=== PATIENT | male | born 1975 | race Caucasian/White ===

== ENCOUNTER 2017-08-03 10:34 | Emergency (ER) | payer OTHER ==
[~2017-08-03] VITALS: Ht 180.3 cm; Wt 90.3 kg
[~2017-08-03 10:34] MED LIST: CLON1 PO
[2017-08-03] MEDS ORDERED: FLUV50 PO (10:57)
[2017-08-03] MEDS ORDERED: MIRT30 PO (10:58)
[2017-08-03] MEDS ORDERED: OLAN5 PO (10:58)
[2017-08-03] MEDS ORDERED: CLON1 PO (10:58)
[2017-08-03] MEDS ORDERED: ZYRTEC10 M1 PO (10:59)
[2017-08-03] MEDS ORDERED: RISP2 PO (10:59)
[2017-08-03] MEDS ORDERED: Zithromax250 MG PO (11:47)
== END 2017-08-03 11:56 | disposition home or self-care (01) ==
LOC: ER 10:34
DX: R05 Cough (principal); Z91.030 Bee allergy status; Z88.2 Allergy status to sulfonamides; Z79.899 Other long term (current) drug therapy; Z87.891 Personal history of nicotine dependence
CPT/HCPCS: 71046; 99283

== ENCOUNTER 2019-01-18 19:31 | Emergency (ER) | payer OTHER ==
[~2019-01-18] VITALS: Ht 182.9 cm; Wt 72.6 kg
[~2019-01-18 19:31] MED LIST changes: +Benztropine Mesy1 MG; +FLUV50 PO; +MIRT30 PO; +OLAN5 PO; +RISP2 PO; +ZYRTEC10 M1 PO; +Zithromax250 MG PO
[2019-01-18 20:14] LABS: BASOPHILS PERCENT AUTO 0 % (0-2); EOSINOPHILS PERCENT AUTO 0 % (0-6); Hematocrit 38.6 % (37.0-53.0); Hemoglobin 12.9 g/dL (13.5-17.5); IMMATURE GRAN ABSOLUTE AUTO 0.01 K/mm3 (0.00-0.10); IMMATURE GRAN PERCENT AUTO 0 % (0-1); LYMPHOCYTES PERCENT AUTO 13 % (21-46); MONOCYTES PERCENT AUTO 9 % (4-13); Mean Corpuscular HGB 30.7 pg (26.0-34.0); Mean Corpuscular HGB Conc 33.4 g/dL (31.5-36.5); Mean Corpuscular Volume 92 fL (80-100); Mean Platelet Volume 9.8 fL (9.1-12.4); NEUTROPHILS ABSOLUTE AUTO 6.38 K/mm3 (1.96-9.15); NEUTROPHILS PERCENT AUTO 78 % (41-73); Platelet Count 212 K/mm3 (150-400); RDW Coefficient Variation 12.8 % (11.7-14.2); RDW Standard Deviation 42.5 fL (35.1-46.3); White Blood Cell Count 8.19 K/mm3 (4.00-11.30)
[2019-01-18 20:42] LABS: Alanine Aminotransfer (ALT/SGP 41 U/L (12-78); Albumin, Blood 3.6 g/dL (3.4-5.0); Albumin/Globulin Ratio 1.3 (0.8-1.8); Alk Phos 82 U/L (50-136); Anion Gap 2 mmol/L (6-16); Aspartate Aminotrans (AST/SGOT 68 U/L (12-37); Bilirubin, Total 0.6 mg/dL (0.1-1.0); Blood Urea Nitrogen 18 mg/dL (8-24); CO2, Blood 31 mmol/L (21-32); Chloride, Blood 107 mmol/L (98-108); Creatinine, Blood 0.82 mg/dL (0.60-1.20); Globulin, Blood 2.7 g/dL (2.2-4.0); Glomerular Filtration Rate >60 (60-); Glucose, Blood 122 mg/dL (70-99); Potassium, Blood 4.6 mmol/L (3.5-5.5); Sodium, Blood 140 mmol/L (136-145); Total Protein, Blood 6.3 g/dL (6.4-8.2)
[2019-01-18] MEDS ORDERED: ACET325 PO (20:44)
[2019-01-18] MEDS ORDERED: AMOX250 PO (20:45)
[2019-01-18] MEDS ORDERED: DOC250 PO (20:46)
[2019-01-18] MEDS ORDERED: Econazole Nitra15 GM TOP (20:46)
[2019-01-18] MEDS ORDERED: POLY500 PO (20:47)
[2019-01-18] MEDS ORDERED: Flonase 0.05% N16 GM (20:48)
[2019-01-18] MEDS ORDERED: Loratadine10 MG PO (20:48)
[2019-01-18] MEDS ORDERED: MIRALAX17 GM PO (20:50)
[2019-01-18] MEDS ORDERED: LAMO100 PO (20:50)
[2019-01-18] MEDS ORDERED: QUET25 PO (20:51)
[2019-01-18] MEDS ORDERED: QUET200 PO (20:52)
== END 2019-01-18 22:59 | disposition home or self-care (01) ==
LOC: ER 19:31
PROVIDERS: Emergency Medicine
DX: T43.591A Poisoning by other antipsychotics and neuroleptics, accidental (unintentional), initial encounter (principal); S06.9X1A Unspecified intracranial injury with loss of consciousness of 30 minutes or less, initial encounter; W18.30XA Fall on same level, unspecified, initial encounter; Z91.013 Allergy to seafood; Z88.2 Allergy status to sulfonamides; Z88.1 Allergy status to other antibiotic agents; Z79.899 Other long term (current) drug therapy; F31.9 Bipolar disorder, unspecified; Z87.891 Personal history of nicotine dependence
CPT/HCPCS: 70450; 72125; 80053; 85025; 93005; 93010; 99284-25

== ENCOUNTER 2019-01-27 13:50 | Emergency (ER) | payer OTHER ==
[~2019-01-27] VITALS: Ht 182.9 cm; Wt 81.7 kg
[~2019-01-27 13:50] MED LIST changes: +ACET325 PO; +AMOX250 PO; +DOC250 PO; +Econazole Nitra15 GM TOP; +Flonase 0.05% N16 GM; +LAMO100 PO; +Loratadine10 MG PO; +MIRALAX17 GM PO; +POLY500 PO; +QUET200 PO; +QUET25 PO
[2019-01-27 14:40] LABS: BASOPHILS PERCENT AUTO 0 % (0-2); EOSINOPHILS PERCENT AUTO 0 % (0-6); Hematocrit 38.9 % (37.0-53.0); Hemoglobin 13.1 g/dL (13.5-17.5); IMMATURE GRAN ABSOLUTE AUTO 0.01 K/mm3 (0.00-0.10); IMMATURE GRAN PERCENT AUTO 0 % (0-1); LYMPHOCYTES ABSOLUTE AUTO 1.23 K/mm3 (0.84-5.20); LYMPHOCYTES PERCENT AUTO 27 % (21-46); MONOCYTES ABSOLUTE AUTO 0.67 K/mm3 (0.16-1.47); MONOCYTES PERCENT AUTO 15 % (4-13); Mean Corpuscular HGB 30.3 pg (26.0-34.0); Mean Corpuscular HGB Conc 33.7 g/dL (31.5-36.5); Mean Corpuscular Volume 90 fL (80-100); Mean Platelet Volume 8.7 fL (9.1-12.4); NEUTROPHILS ABSOLUTE AUTO 2.61 K/mm3 (1.96-9.15); NEUTROPHILS PERCENT AUTO 58 % (41-73); Platelet Count 287 K/mm3 (150-400); RDW Coefficient Variation 12.8 % (11.7-14.2); RDW Standard Deviation 42.2 fL (35.1-46.3); Red Blood Cell Count 4.33 M/mm3 (4.30-5.90); White Blood Cell Count 4.52 K/mm3 (4.00-11.30)
[2019-01-27 15:18] LABS: Alanine Aminotransfer (ALT/SGP 52 U/L (12-78); Albumin, Blood 3.9 g/dL (3.4-5.0); Albumin/Globulin Ratio 1.4 (0.8-1.8); Alk Phos 106 U/L (50-136); Anion Gap 5 mmol/L (6-16); Aspartate Aminotrans (AST/SGOT 41 U/L (12-37); Bilirubin, Total 0.5 mg/dL (0.1-1.0); Blood Urea Nitrogen 17 mg/dL (8-24); Bun/Creatinine Ratio 18.4 (12.0-20.0); CO2, Blood 29 mmol/L (21-32); Calcium, Blood 9.3 mg/dL (8.5-10.1); Chloride, Blood 109 mmol/L (98-108); Creatinine, Blood 0.92 mg/dL (0.60-1.20); Globulin, Blood 2.8 g/dL (2.2-4.0); Glomerular Filtration Rate >60 (60-); Glucose, Blood 104 mg/dL (70-99); Potassium, Blood 4.3 mmol/L (3.5-5.5); Sodium, Blood 143 mmol/L (136-145); Total Protein, Blood 6.7 g/dL (6.4-8.2)
== END 2019-01-27 16:29 | disposition home or self-care (01) ==
LOC: ER 13:50
PROVIDERS: Emergency Medicine
DX: T18.128A Food in esophagus causing other injury, initial encounter (principal); G31.84 Mild cognitive impairment of uncertain or unknown etiology; F31.9 Bipolar disorder, unspecified; Z87.891 Personal history of nicotine dependence; Z88.2 Allergy status to sulfonamides; Z88.8 Allergy status to other drugs, medicaments and biological substances; Z88.1 Allergy status to other antibiotic agents; Z91.030 Bee allergy status; Z79.899 Other long term (current) drug therapy
CPT/HCPCS: 36415; 71045; 80053; 85025; 99284-25

== ENCOUNTER 2019-03-04 20:08 | Emergency (ER) | payer OTHER ==
[~2019-03-04] VITALS: Ht 190.5 cm; Wt 70.6 kg
[2019-03-04] MEDS ORDERED: ONDA4ODT MM (20:35)
[2019-03-04] MEDS ORDERED: CLON1 PO (21:04)
[2019-03-04] MEDS ORDERED: BENADRYL25 MG PO (21:05)
[2019-03-04] MEDS ORDERED: LAMO100 PO (21:06)
[2019-03-04] MEDS ORDERED: Loratadine10 MG PO (21:07)
[2019-03-04] MEDS ORDERED: MIRALAX17 GM PO (21:07)
[2019-03-04] MEDS ORDERED: PALI3TAB PO (21:08)
[2019-03-04] MEDS ORDERED: PALI6TA PO (21:09)
[2019-03-04] MEDS ORDERED: TRAZ150T57 PO (21:10)
== END 2019-03-04 21:45 | disposition home or self-care (01) ==
LOC: ER 20:08
DX: R11.2 Nausea with vomiting, unspecified (principal); R51 Headache; H57.89 Other specified disorders of eye and adnexa; H51.0 Palsy (spasm) of conjugate gaze; F31.9 Bipolar disorder, unspecified; Z87.891 Personal history of nicotine dependence; Z91.030 Bee allergy status; Z88.2 Allergy status to sulfonamides; Z88.1 Allergy status to other antibiotic agents; Z79.899 Other long term (current) drug therapy
CPT/HCPCS: 96361; 96374; 96375; 99283-25; J1200; J1885; J2765; J7030

== ENCOUNTER 2019-06-21 12:20 | Observation (INO) | payer OTHER ==
[~2019-06-21] VITALS: Ht 180.3 cm; Wt 70.3 kg
[~2019-06-21 12:20] MED LIST changes: -ACET325 PO; -AMOX250 PO; -DOC250 PO; -Econazole Nitra15 GM TOP; -Flonase 0.05% N16 GM; +ONDA4ODT MM; +PALI3TAB PO; +PALI6TA PO; +TRAZ150T57 PO
[2019-06-21] MEDS ORDERED: CLON1 PO (13:36)
[2019-06-21] MEDS ORDERED: ACET325 PO (13:37)
[2019-06-21] MEDS ORDERED: AMOX250 PO (13:38)
[2019-06-21] MEDS ORDERED: DOC250 PO (13:38)
[2019-06-21] MEDS ORDERED: ECONAZOLE NITRA30 GM TOP (13:39)
[2019-06-21] MEDS ORDERED: DIPH50 PO (13:41)
[2019-06-21] MEDS ORDERED: Lamictal150 MG PO (13:41)
[2019-06-21] MEDS ORDERED: Loratadine10 MG PO (13:42)
[2019-06-21] MEDS ORDERED: MIRALAX17 GM PO (13:42)
[2019-06-21] MEDS ORDERED: Flonase 0.05% N16 GM (13:43)
[2019-06-21] MEDS ORDERED: OLANZAPINE15 MG PO (13:44)
[2019-06-21] MEDS ORDERED: Halcion0.25 MG PO (13:45)
[2019-06-21] MEDS ORDERED: Retin-A15 G1 TOP (13:46)
[2019-06-21] MEDS ORDERED: SENNA-S LAXATI1 EACH PO (13:46)
[2019-06-21] MEDS ORDERED: Triple Antibio1 EACH TOP (13:47)
[2019-06-21] MEDS ORDERED: Fibercon625 MG PO (13:47)
[2019-06-21] MEDS ORDERED: MEDICATI TOP (13:48)
[2019-06-21] MEDS ORDERED: EPIPEN0.3 MG/0.3 IM (13:50)
--- NOTE | 2019-06-21 19:20 | NUR ---
PT ARRIVED TO THE MEDICAL FLOOR FROM THE ER AROUND 183, PT IS ANXIOUS BUT COOPERATIVE AT THAT TIME, PTS CARE GIVERS ARE AT THE BEDSIDE, THE PT WAS GIVEN HALDOL 5 MG FOR INCREASED ANXIETY AND AGITATION, BED ALARM ON, CALL LIGHT IN REACH, REPORT GIVEN TO NOC NURSE
[2019-06-21 21:11] LABS: Source, Urine Clean Catch
[2019-06-21 21:14] LABS: Bilirubin, Urine Neg (Neg); Blood, Urine Neg (Neg); Glucose Qualitative, Urine Neg (Neg); Ketones, Urine Neg (Neg); Leukocyte Esterase, Urine Neg (Neg); Nitrite, Urine Neg (Neg); Protein, Urine Neg (Neg); Specific Gravity, Urine 1.015 (1.003-1.022); Urobilinogen, Urine NORM (Normal)
[2019-06-21 21:19] LABS: Appearance, Urine Hazy (Clear); Color, Urine Yellow (P-Yellow)
[2019-06-21 21:21] LABS: Amorphous Heavy (0-Heavy); Bacteria Few /hpf; Red Blood Cells, Urine 0-2 /hpf (0-2); Squamous Epithelial Cells Rare /hpf (Few); White Blood Cells, Urine Not Seen /hpf (0-5)
--- NOTE | 2019-06-22 04:39 | NUR ---
SHIFT SUMMARY: A/O TO SELF AND STAFF FROM [facility]. UP WALKING AROUND, DRESSING SELF AND ATTEMPTING TO LEAVE AT START OF SHIFT. YELLING OUT ANGRILY SAYING NAMES AND THREATENING INDIVIDUALS NOT PRESENT. AMB TO COMMODE AND SEVERAL TIMES BEFORE SUCCESSFULLY HAVING A CONTINENT VOID AND BM. KICKING IN THE DIRECTION OF STAFF BUT DID NOT MAKE CONTACT. REDIRECTED W/COLORING AND SNACKS. TOOK HS MEDICATIONS READILY ALONG W/ SNACK. FELL ASLEEP AB0UT 45 MINUTES AFTER ROUTINE MEDS WERE GIVEN. PT HAS REMAINED ASLEEP EXCEPT TO GET UP TO VOID IN TOILET AND RETURNS TO BED EACH TIME. BED ALARM ON. 1 ASSIST W/ T/F. WILL CONT TO MONITOR.
[2019-06-22 05:35] LABS: BASOPHILS ABSOLUTE AUTO 0.06 K/mm3 (0.00-0.23); BASOPHILS PERCENT AUTO 1 % (0-2); EOSINOPHILS ABSOLUTE AUTO 0.54 K/mm3 (0.00-0.68); EOSINOPHILS PERCENT AUTO 11 % (0-6); Hematocrit 41.6 % (37.0-53.0); Hemoglobin 13.5 g/dL (13.5-17.5); IMMATURE GRAN ABSOLUTE AUTO 0.01 K/mm3 (0.00-0.10); IMMATURE GRAN PERCENT AUTO 0 % (0-1); LYMPHOCYTES ABSOLUTE AUTO 1.35 K/mm3 (0.84-5.20); LYMPHOCYTES PERCENT AUTO 27 % (21-46); MONOCYTES ABSOLUTE AUTO 0.55 K/mm3 (0.16-1.47); MONOCYTES PERCENT AUTO 11 % (4-13); Mean Corpuscular HGB 30.2 pg (26.0-34.0); Mean Corpuscular HGB Conc 32.5 g/dL (31.5-36.5); Mean Corpuscular Volume 93 fL (80-100); Mean Platelet Volume 8.4 fL (9.1-12.4); NEUTROPHILS ABSOLUTE AUTO 2.54 K/mm3 (1.96-9.15); NEUTROPHILS PERCENT AUTO 50 % (41-73); Platelet Count 354 K/mm3 (150-400); RDW Coefficient Variation 12.3 % (11.7-14.2); RDW Standard Deviation 42.5 fL (35.1-46.3); Red Blood Cell Count 4.47 M/mm3 (4.30-5.90); White Blood Cell Count 5.05 K/mm3 (4.00-11.30)
[2019-06-22 06:05] LABS: Alanine Aminotransfer (ALT/SGP 39 U/L (12-78); Albumin, Blood 3.5 g/dL (3.4-5.0); Albumin/Globulin Ratio 1.3 (0.8-1.8); Alk Phos 150 U/L (50-136); Anion Gap 5 mmol/L (6-16); Aspartate Aminotrans (AST/SGOT 37 U/L (12-37); Bilirubin, Total 0.5 mg/dL (0.1-1.0); Blood Urea Nitrogen 14 mg/dL (8-24); Bun/Creatinine Ratio 14.3 (12.0-20.0); CO2, Blood 30 mmol/L (21-32); Calcium, Blood 9.1 mg/dL (8.5-10.1); Chloride, Blood 107 mmol/L (98-108); Creatinine, Blood 0.98 mg/dL (0.60-1.20); Globulin, Blood 2.7 g/dL (2.2-4.0); Glomerular Filtration Rate >60 (60-); Glucose, Blood 88 mg/dL (70-99); Potassium, Blood 4.5 mmol/L (3.5-5.5); Sodium, Blood 142 mmol/L (136-145); Total Protein, Blood 6.2 g/dL (6.4-8.2)
--- NOTE | 2019-06-22 13:26 | NUR ---
PT AGITATION THIS AFTER NOON THE PT HAS BECOME RESTLESS AND AGITATED AT TIMES, HALDOL 5 MG GIVEN, THE PT SO CHARLY HAS BEEN EASILY REDIRECTED
--- NOTE | 2019-06-22 17:09 | NUR ---
PT IS ALERT, HAS SEVERE AUTISM, THE PT IS UP WITH MINIMAL STANDBY ASSISTANCE TO THE BATHROOM AND OUT INTO THE SABA, THE PT AT TIMES HAS BEEN ANXIOUS AND A LITTLE AGITATED AT ONE TIME THIS AFTERNOON, PRN HALDOL WAS GIVEN AT THAT TIME X1, THE PT HAS BEEN EASILY REDIRECTIBLE FOR THE MOST PART, PT APPEARS TO BE BREATHING EASILY ON RA, THE PTS FORMER CARE GIVERS ARE THIS AFTERNOON TO VISIT THE PT, WILL CONTINUE TO MONITOR AND ASSESS FOR CHANGES
--- NOTE | 2019-06-23 04:12 | NUR ---
PT FORCEFULLY EXITED LOCKED UNIT BY KICKING AND HOLDING DOORS LONGER THAN 15 SECONDS. PT WALKED AROUND MEDICAL FLOOR AND ATTEMPTED TO ENTER OTHER PT'S ROOMS. SIDDHARTHA ALFARO CALLED. PT REDIRECTED BACK TO ROOM, IM HALDOL ADMINISTERED PER EMAR. PT IS CURRENTLY LAYING IN BED, SOMEWHAT RESTLESSLY, BUT NO LONGER ATTEMPTING TO LEAVE ROOM AT THIS TIME.
--- NOTE | 2019-06-23 04:26 | NUR ---
SHIFT SUMMARY: BP 83/64, 100/57. SKIN WARM AND CLAMMY. PT AFEB. CALM MOSTLY EXCEPT FOR PREVIOUSLY DOCUMENT INCIDENT REQUIRING HALDOL. PT HAS SLEPT FOR MUCH OF THE NIGHT EXCEPT TO GET UP AND ATTEMPT TO VOID. CURRENTLY SLEEPING. BED LOW, ALARM ON, WILL CONT TO MONITOR.
--- NOTE | 2019-06-23 06:26 | NUR ---
PT GET OOB AND COMING OUT IN THE HALLWAY, INCREASINGLY AGITATED, BUT STILL REDIRECTABLE. HE IS NOT ATTEMPTING TO LEAVE THE UNIT AND DOES STILL RETURN TO ROOM. BUT IS UP AND DOWN MORE FREQUENTLY. SPOKE W/ ANSWERING SERVICE, DR. SHAVER TO PROACTIVELY OBTAIN ADDITIONAL PRN MED TO REDUCE AGITATION. N.O. FOR ATIVAN PO PRN.
--- NOTE | 2019-06-23 15:08 | NUR ---
AT 1:45 PM THE PATIENT GOT OUT OF BED AND WALKED DOWN THE SABA TO THE FRONT DOORS. STAFF GOT INFRONT OF THE PATIENT TO TRY TO STEER HIM AWAY FROM THE DOORS AND BACK TO HIS ROOM. THE PATIENT WAS AGITATED AND CONFUSED, PUSHING STAFF OUT OF HIS WAY TO LEAVE. STAFF WAS ABLE TO REDIRECT HIM BACK TO HIS ROOM. AT THIS TIME, HIS NURSE GATHERED THE MEDICATIONS DR. GARZON ORDERED THIS AFTERNOON TO ADMINISTER TO THE PATIENT. FOLLOWING THE ADMINISTRATION OF THESE MEDICATIONS, THE PATIENT CONTINUES TO GET OUT OF BED AND LEAVE HIS ROOM BUT HE IS NOT SHOWING SIGNS OF AGRESSION. PATIENT IS EASILY REDIRECTABLE. WILL CONTINUE TO MONITOR.
--- NOTE | 2019-06-23 17:15 | NUR ---
PATIENT IS ALERT. HE IS EASILY REDIRECTABLE MOST OF THE TIME. PATIENT DID BECOME AGRESSIVE AND TRY TO LEAVE THE UNIT TWICE THIS AFTERNOON. DR. GARZON SAW THE PATIENT THIS MORNING AND ORDERED NEW MEDICATIONS WHICH WERE GIVEN PER EMAR TO TREAT THE PATIENT'S AGITATION. THE PATIENT SPENT HIS DAY SLEEPING IN BED. HE GETS UP OUT OF BED TO USE THE BATHROOM. ATTENDS IN PLACE. WILL CONTINUE TO MONITOR
--- NOTE | 2019-06-23 19:14 | NUR ---
VERIFIED VIDEO MONITORING CALLED [facility] MONITOR AND VERIFIED VIDEO MONITORING FOR THIS PT
--- NOTE | 2019-06-24 04:13 | NUR ---
SHIFT SUMMARY ADMITTED FOR PSYCH EVAL. FULL CODE. WAS LIVING AT [facility] - FOLLOWING MEDICATION CHANGES HE BECAME AGGRESSIVE THERE, ENDANGERING HIMSELF WELL. WE ARE SEEKING PLACEMENT ELSEWHERE FOR THIS PT. CLCM IS PURSUING PLACEMENT, IF UNSUCCESSFUL SACU CAN THEN CONSIDER PLACING HIM. REGULAR DIET, VIDEO MONITORING IN PLACE, RA, SUPERVISE FEEDING (ONLY SMALL AMOUNTS AT A TIME), NO IV ACCESS. HE IS REDIRECTABLE AND COOPERATIVE WITH CARE. HX: AUTISM, SCHIZOAFFECTIVE DISORDER, OCD, DYSPHAGIA. I DID MEDICATE WITH PRN ORAL SEROQUEL Q 4 HRS AND THIS SEEMED EFFECTIVE WHEN HE SHOWED SIGNS OF ANXIETY. HE DOES FREQUENTLY SNACK. HE ENJOYS WARM BLANKETS.
--- NOTE | 2019-06-24 06:03 | NUR ---
PT NOT SLEEPING AT NIGHT INFORMED BY PREVIOUS NIGHT NURSE THAT THIS PT DID NOT SLEEP THE NIGHT BEFORE LAST, HE ALSO DID NOT SLEEP LAST NIGHT. HE GETS OUT OF BED EVERY 30 MIN - HOUR AND EXITS HIS ROOM. SO FAR I'VE BEEN ABLE TO REDIRECT HIM BACK TO HIS ROOM.
--- NOTE | 2019-06-24 17:08 | NUR ---
PT HAS BEEN AGITATED DURING THIS SHIFT. HAS BEEN DIRECTABLE THUS FAR. PT AGREEABLE WITH SAFETY REQUESTS. HAS BEEN APPROACHING DOOR AND HITTING THE DOOR WITH MODERATE FORCE AND OPEN HANDS UP TO THIS POINT. SAFETY OF PT HASN'T BEEN COMPROMISED AT THIS POINT. BEHAVIOR HAS BEEN DISCUSSED WITH PROVIDER TLAANG. LEONARD TO CONTINUE TO MONITOR SAFETY OF PT.
--- NOTE | 2019-06-24 18:05 | NUR ---
SHIFT SUMMARY PT ALERT TO SELF AND KNOWN PEOPLE ONLY. INCOMPREHENSABLE TALK FOR MOST PART. PT IMPULSIVE BUT HAS REMAINED REDIRECTABLE, SOME PRN AGITATION MEDS USED THROUGH SHIFT WITH SUCCESS. NO ACUTE MED CHANGES OBSERVED. LN TO CONTINUE TO MONITOR.
--- NOTE | 2019-06-24 19:25 | NUR ---
VERIFIED VIDEO MONITORING CONTACTED VIDEO MONITOR TO VERIFY MONITORING
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
--- NOTE | 2019-06-25 17:58 | NUR ---
PT VERY AGITATED THIS MORNING AT START OF SHIFT. NOC RN GAVE PRN MEDICATIONS, WHICH TOOK SOME TIME TO HAVE AN EFFECT. PT CALMED AND ATE BREAKFAST, PERIODS OF AGITATION AND DISROBING, WANDERING IN SABA AND ATTEMPTING TO ENTER OTHERS ROOMS, BUT HAS BEEN REDIRECTABLE. PT IS GOING TO REQUIRE SUPERVISION IN THE BR HE ATTEMPTED TO FLUSH HIS ATTENDS AND CLOGGED THE TOILET, MAINTENANCE CAME AND UNPLUGGED. NO ACUTE CHANGES, WILL CONTINUE TO MONITOR AND REPORT TO ONCOMING RN
--- NOTE | 2019-06-26 05:25 | NUR ---
SHIFT SUMMARY- PT. AGITATED T/O THE SHIFT W/SEVERAL ATTEMPTS MADE TO GO INTO OTHER PT'S ROOMS. PT. WANDERING THE SABA MOST OF THE NIGHT, TAKING OFF HIS CLOTHES MULTIPLE TIMES, REMOVING LINEN FROM BED, AND SLAMMING BOTH ROOM/BATHROOM DOORS. PT. REDIRECTED BACK INTO HIS ROOM MANY TIMES DURING THE NIGHT, REPOSITIONED FOR COMFORT, AND SNACKS GIVEN PER PT. REQUEST. PRN HALDOL AND ATIVAN GIVEN PER EMAR, WITH MINIMAL EFFECT. PT. CONTS TO BE MONITORED BY CAMERA. CALL LIGHT WITHIN REACH, SIDE RAILS UP X3, AND BED IN LOW POSITION. WILL CONT TO MONITOR.
--- NOTE | 2019-06-26 16:55 | NUR ---
SHIFT SUMMARY PT BECAME INCREASINGLY AGITATED THE SHIFT WENT ON. EARLY AFTERNOON PT WAS MEDICATED WITH PER EMAR WITH HALDOL, ALTIVAN, AND BENADRYL. PT CURRENTLY SLEEPING IN BED. CALL LIGHT IN REACH. MONITORS IN PLACE. NO OTHER CHANGES IN ASSESSMENT AT THIS TIME. VSS. WILL CONTINUE TO MONITOR UNTIL TURNOVER IS COMPLETE. PT AWAITING PLACEMENT. DC PLANNING CONSULTED.
--- NOTE | 2019-06-26 20:03 | NUR ---
PATIENT FREQUENTLY WALKS SABA
--- NOTE | 2019-06-26 22:23 | NUR ---
PT. ASLEEP IN BED, NO APPARENT DISTRESS NOTED. CALL LIGHT WITHIN REACH, SIDE RAILS UP X3, AND CAMERA ON IN ROOM. WILL CONT TO MONITOR.
--- NOTE | 2019-06-27 03:59 | NUR ---
PT HAS SPENT NIGHT MAKING AND UNMAKING BED, WELL REQUESTING MANY BLANKETS
--- NOTE | 2019-06-27 04:44 | NUR ---
SHIFT SUMMARY- PT. SLEPT ON/OFF DURING THE NIGHT. NO APPARENT DISTRESS NOTED. PT. WAS UP OOB FEW TIMES DURING THE SHIFT, EASILY REDIRECTED. PT. CALM AND COOPERATIVE WITH CARE. TOOK SCHEDULED MEDS W/O DIFFICULTY. NO OTHER ACUTE CHANGES TO CONDITION. CALL LIGHT WITHIN REACH AND SIDE RAILS UP X3. WILL CONT TO MONITOR.
--- NOTE | 2019-06-27 06:37 | NUR ---
Room 348 Has given verbal permission for student nurse Cristhian Cardona to provide care later on in the day on 06/27/2019 from 13:00-17:50
--- NOTE | 2019-06-27 17:54 | NUR ---
SUMMARY PT SITTING UP IN HIS ROOM EATING DINNER, PT HAS BEEN IMPULSIVE YET REDIRECTIBLE T/O THE DAY, OFTEN UP IN THE HALLS AND WANDERING INTO ROOMS, PT COOPERATIVE WITH CARE, TAKES ALL MEDS WITHOUT DIFFICULTY, CERTIFIED ORTHOTIST PRACTICE MANAGER IN TO VISIT BRIEFLY, VSS, NO ACUTE CHANGES, WILL CONT TO MONITOR
--- NOTE | 2019-06-28 05:59 | NUR ---
SHIFT SUMMARY- PT. WAS IMPULSIVE DURING MOST OF THE NIGHT, WANDERING THE SABA AND ATTEMPTING TO GO INTO PT'S ROOMS. BECAME VERY AGITATED AND BEGAN TO THROW DESK ITEMS ON THE FLOOR. MEDICATED WITH A B52 PER EMAR WITH GOOD EFFECT. PT. WAS ABLE TO REST COMFORTABLY THE REST OF THE SHIFT. NO APPARENT DISTRESS NOTED. CALL LIGHT WITHIN REACH AND SIDE RAILS UP X3. WILL CONT TO MONITOR.
--- NOTE | 2019-06-28 17:39 | NUR ---
SUMMARY PT RESTLESS THIS AFTERNOON, PT WANDERING THE HALLS OFF AND ON T/O THE DAY, INTO OTHER PATIENTS ROOMS, EASILY REDIRECTABLE, EATS ANYTHING YOU PUT IN FRONT OF HIM, A COTTON GROWER DID COME IN TO VISIT, PT REQUIRED MEDICATION FOR AGITATION ONCE TODAY, VSS, NO ACUTE CHANGES, WILL CONT TO MONITOR
--- NOTE | 2019-06-29 06:31 | NUR ---
SHIFT SUMMARY PATIENT WAS UP AND DOWN ALL NIGHT, WANDERING AROUND THE UNIT, GOT VERY LITTLE SLEEP. GIVEN A PRN SHOWER WHEN HE TOOK HIS CLOTHES OFF AND SMEARED BM ON HIS HANDS AND BACK. BED IN LOWEST POSITION WITH WHEELS LOCKED. CALL LIGHT WITHIN REACH. REPORT GIVEN TO ONCOMING RN.
--- NOTE | 2019-06-29 18:51 | NUR ---
alert, orintated to self, willful, angry when twarted, one dose ativan, no call light, rm air, no IV, redirectable but sometimes requires a presence to get his attention, shared bsr with noc shift
--- NOTE | 2019-06-30 02:41 | NUR ---
PATIENT HAS BECOME AGGITATED, WILL NOT STAY IN ONE SPOT. WANDERING AROUND THE UNIT, DISROBING, ATTEMPTING TO GO INTO OTHER PATIENT'S ROOMS, AND ATTEMPTING TO PLAY WITH THINGS THAT HE SHOULDN'T BE TOUCHING. THIS NURSE GAVE THE PATIENT AN IM INJECTION OF ATIVAN PER EMAR TO HELP HIM SETTLE DOWN.
--- NOTE | 2019-06-30 04:53 | NUR ---
PATIENT RAN HIMSELF INTO THE DOORS OF THE UNIT ATTEMPTING TO GET OUT. HE WAS BECOMING INCREASINGLY DIFFICULT TO REDIRECT AND AGGITATED. PATIENT GIVEN HALDOL PER EMAR
--- NOTE | 2019-06-30 06:42 | NUR ---
SHIFT SUMMARY PATIENT AGGITATED MUCH OF THE NIGHT. RECEIVED MEDICATIONS PER EMAR. PATIENT IS STILL AGGITATED BUT IS SLIGHTLY MORE REDIRECTABLE. PATIENT DID NOT SLEEP OVERNIGHT. BED IN LOWEST POSITION WITH WHEELS LOCKED. CALL LIGHT WITHIN REACH. REPORT GIVEN TO JENN WARD.
--- NOTE | 2019-06-30 14:37 | NUR ---
full dose of haldol, ativan and benadryl haldol not given with benadryl
--- NOTE | 2019-06-30 15:28 | NUR ---
more agitated dispite following 's wishes as to 3 med mix
--- NOTE | 2019-06-30 18:52 | NUR ---
alert, mobile, redirectable, cooperative with medication, having trouble staying in room so spent the last three hours alternating between a chair in the leiva and his room, likes food, shared bsr with pt and noc staff
--- NOTE | 2019-07-01 04:13 | NUR ---
SHIFT SUMMARY PT HAS HAD NO ACUTE CHANGES THIS SHIFT, MEDICATED PER MAR FOR AGITATION, REDIRECTABLE MOST OF SHIFT, PT WAKES CONTINUALLY T/O NIGHT AND ATTEMPTS TO WALK OUT TO SABA, RETURNS TO BED WHEN ASKED TO; COOPERATIVE W/MEDS & CARE, SLEEPING AT THIS TIME, CALL LIGHT IN REACH, WILL CONT TO MONITOR UNTIL REPORT GIVEN TO DAY RN.
--- NOTE | 2019-07-01 17:50 | NUR ---
SHIFT SUMMARY INDEPENDENT IN HALLWAYS. SITS IN CHAIR IN HALLWAY AND THEN ASKS TO GO TO BED AND TAKES HIMSELF BACK. REQUESTING A SHAVE AND A SHOWER THIS MORNING BEFORE BREAKFAST. GENERALLY REDIRECTABLE. NEEDS COACHING WITH EATING BECAUSE HE LIKES TO EAT AND DRINK FAST. WEARING HIS CLOTHES WITH NO COMPLAINT TODAY. WAS CHANTING JOHN VERY LOUDLY THIS AFTERNOON AND WAS GETTING UP FROM BED AND PACING HALLWAYS. BENEDRYL/HALDOL/ATIVAN COMBINATION GIVEN. HAS REMAINED AWAKE MOST OF THE AFTERNOON BUT IS CALMER THAN EARLIER.
--- NOTE | 2019-07-02 05:15 | NUR ---
SHIFT SUMMARY PT HAS HAD NO ACUTE CHANGES THIS SHIFT, W/REDIRECTING HAS REMAINED IN BED AND SLEPT ON & OFF T/O SHIFT, PT BEDRESTING AT THIS TIME, WILL CONT TO MONITOR UNTIL REPORT GIVEN TO DAY RN.
--- NOTE | 2019-07-02 17:48 | NUR ---
SHIFT SUMMARY UP AND DOWN FROM BED. SITTING IN CHAIR IN HALLWAY. REDIRECTABLE WITH BEHAVIORS. MONITERED WITH HIS ORAL INTAKE DUE TO EATING TOO FAST. WAS CHANTING THIS AFTERNOON BUT STOPPED AFTERNOON PROGRESSED. LAUGHING AND MOVING ABOUT IN HALLWAY PRIOR TO DINNER. VISITOR FOR BREAKFAST AND DINNER.
--- NOTE | 2019-07-03 04:08 | NUR ---
SHIFT SUMMARY PT HAS HAD NO ACUTE CHANGES THIS SHIFT, HAD A DIFFICULT TIME SLEEPING TONIGHT; AT SHIFT START PT WAS ASKING TO GO HOME AND ASKING FOR JAMIA, ALSO TALKING ABOUT HIS BROTHER- WERO PAGE, PT HAS BEEN VERY PLEASANT, COOPERATIVE W/CARE AND EASILY REDIRECTABLE. PT FINALLY FELL ASLEEP @ 0315 AND IS SLEEPING AT THIS TIME, WILL CONT TO MONITOR UNTIL REPORT GIVEN TO DAY RN.
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
--- NOTE | 2019-07-03 12:38 | NUR ---
PT HAS BEEN UP AND DOWN FREQUENTLY T/O THE DAY BUT REMAINS EASILY (VERBALLY) REDIRECTABLE. PT IS ALERT TO SELF AND AMBULATES INDEPENDENTLY IN THE HALLS. PT COMES OUT INTO THE SABA AND SITS IN A CHAIR WITH ANOTHER PT AND VISITS. STAFF MONITOR CLOSELY AND IF THE PT IS BECOMING OVERSTIMULATED STAFF CAN VERBALLY REDIRECT HIM TO HIS ROOM TO LAY DOWN.
--- NOTE | 2019-07-03 15:00 | NUR ---
PT BECAME AGGITATED AND THREW A CUP OF WATER AT THE WALL AND BEGAN USING HARSH LANGUAGE. PT WAS ABLE TO REDIRECT VERBALLY AT THIS TIME REVIEW OF THE EMAR REVEALS IM MEDICATIONS THAT HAVE BEEN GIVEN REGULARLY UNTIL YESTERDAY, WILL CTM PT AT THIS TIME, HE REDIRECTS FOR THIS RN WELL AT THIS TIME.
--- NOTE | 2019-07-03 16:00 | NUR ---
PT HAVING SMALL OUTBURSTS BUT STILL VERBALLY REDIRECTABLE, HELPED THE PT INTO BED, REDUCED STIMULUS (LIGHTS OUT DOOR CLOSED) THIS LASTED FOR A LITTLE WHILE HOWEVER PT SEEMS TO BE HAVING DIFFICULTY FINDING A RESTFUL STATE. PT STILL REDIRECTS VERBALLY FOR THIS RN BUT NOT FOR OTHER STAFF.
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
--- NOTE | 2019-07-03 19:39 | NUR ---
SHIFT SUMMARY- AFTER IMMEDICATION WAS GIVEN PT WAS DIRECTED TO LAY IN BED, MINUTES LATER THE PT WAS SEEM RUNNING COMPLETELY NAKED THROUGH THE HALLS. PT AGAIN REDIRECTED BACK TO HIS ROOM AND BACK INTO HIS CLOTHES AND INTO BED. PT CONTINUED TO GET UP AND NEEDED FREQUENT REDIRECTING UNTIL RN SAT IN THE ROOM WITH THE LIGHTS OFF AND REMINDED THE PT TO LAY DOWN AND RELAX. AFTER 40-50 MINUTES THE PT RELAXED AND LAY IN BED QUIETLY. PT WAS UP WALKING IN THE HALLS AT SHIFT CHANGE.
--- NOTE | 2019-07-04 04:30 | NUR ---
SUMMARY PT HAD NO ISSUES EARLY IN SHIFT. PT CONTINUED TO COME OUT OF ROOM BUT WAS REDIRECTABLE. PT DID SLEEP SOME. PT BEGAN WALKING THE SABA AND TRYING TO GO INTO OTHER PT'S ROOMS. PT WAS NOT REDIRECTABLE. PT WAS MEDICATED PER EMAR AND IS CURRENTLY SLEEPING. WCTM. CALL LIGHT IN REACH.
--- NOTE | 2019-07-04 17:40 | NUR ---
PT HAS BEEN UP ON AND OFF. AOX1 PT IS VERY IMPULSIVE AND CAN BE REDIRECTED, BUT WILL TRY TO JUST KEEP GOING SOMETIMES. PT TREATED FOR HIS EXTREME ANXIETY PER EMAR. PT TAKES CLOTHES ON AND OFF AND WILL STRIP SHEETS OFF HIS BED. HAD A COUPLE EPISODES OF HIM GETTING VERBALLY WORKED UP, BUT MANAGED TO SETTLE HIM DOWN. AID TOOK HIM FOR A WALK. PT DOES TRY TO WALK INTO OTHER ROOMS. WILL CONTINUE TO MONITOR.
--- NOTE | 2019-07-05 00:33 | NUR ---
*FALL* PT HAD UNWITNESSED FALL. PT WAS FOUND ON FLOOR IN FRONT OF ROOM 353. PT ASSESSED AND FOUND TO HAVE NO INJURIES. PT MOVED BACK TO HIS ROOM. THIS RN HAS BEEN SITTING IN FRONT OF PT'S ROOM MONITORING HIM. PT ALSO ON CAMERA. PT GIVEN IM BENEDRYL, ATIVAN AND HALDOL. YELLOW GOWN PLACED ON PT. WAX ENGRAVER AND PROVIDER SARAH NOTIFIED OF INCIDENT. PT HAS BEEN INDEPENDANT AND NOW BED ALARM IS ARMED. WCTM.
--- NOTE | 2019-07-05 03:37 | NUR ---
SUMMARY PT HAD A UNWITNESSED GLF. NO INJURIES NOTED. PT HAS BEEN MEDICATED PER EMAR WITH SOME REDUCTION IN AGITATION. PT IS REDIRECTABLE BUT INSISTS ON GETTING OUT OF BED AND GO INTO HALLWAY. PT HAS SLEPT SOME DURING SHIFT. WCTM AND MEDICATE NEEDED. CALL LIGHT IN REACH, CAMERA MONITOR WATCHING AND BED ALARM ON.
--- NOTE | 2019-07-05 06:40 | NUR ---
PT GUARDIAN BRYCE WAS CALLED AND INFORMED OF PT'S FALL. GUARDIAN WAS INFORMED OF NO INJURIES NOTED.
--- NOTE | 2019-07-05 13:41 | NUR ---
AGITATION: PATIENT BECOMING INCREASINGLY AGITATED IN ACTIONS AND WORDS. FOR EXAMPLE, PATIENT YELLING "I WANT TO GO OUT THERE" WHEN REDIRECTED BACK TO HIS ROOM AND ATTEMPTING TO PULL THE HAND PUMP ERECTOR YOUNG OFF THE WALL. USED A QUIET AND CALM VOICE TO GET PATIENT BACK TO HIS BED AND WENT TO GET PATIENT'S PRN MEDICATIONS FOR AGITATION. UPON RETURNING, PATIENT SITTING AT SIDE OF THE BED BOUNCING UP AND DOWN. GAVE PATIENT A PEPSI AND CHOCOLATE PUDDING AND MEDICATED FOR AGITATION. PATIENT NOW RESTING ON HIS BED WITH THE SHEET OVER HIS HEAD.
--- NOTE | 2019-07-05 18:35 | NUR ---
END OF SHIFT SUMMARY: PATIENT APPEARED COMFORTABLE THROUGHOUT SHIFT. PATIENT EASILY REDIRECTABLE. PATIENT AMBULATED WITH GERIATRIC ASSISTANT MULTIPLE TIMES IN HALLWAY. PATIENT STEADY ON FEET WITH IRREGULAR GAIT. PATIENT ABLE TO FOLLOW MOST COMMANDS. SPEECH IS GARBLED AT TIMES AND HAS SHORT (2-3 WORD SENTENCES) RESPONSES. PATIENT HAS AN EXCELLENT APPETITE. PATIENT REQUIRES CUES TO EAT AND DRINK SLOWLY. PATIENT EXPERIENCED SOME INCREASED AGITATION THIS AFTERNOON (SEE NURSES NOTE). PATIENT CAREGIVER ASKED IF THE PATIENT WAS RECEIVING HIS ACNE CREAM. IT HAS NOT BEEN ORDERED. SHE REPORTED THAT SHE WILL BRING IT IN TOMORROW IF AN ORDER IS ABLE TO BE OBTAINED.
--- NOTE | 2019-07-06 05:06 | NUR ---
COUNSELOR AID SUMMARY NO ACUTE CHANGES THIS SHIFT. PT HAS BEEN FAIRLY CALM AND EASILY REDIRECTABLE TONIGHT. HAS NOT BEEN IRRITABLE OR AGGRESSIVE. BED ALARM ON FOR SAFETY. PT DOES GET UP OFTEN BUT WILL GO RIGHT BACK TO BED OR WILL USE THE RESTROOM. BEDTIME DOSE OF ATIVAN WAS INCREASED TO 6 MG STARTING TONIGHT. VSS, WILL CONTINUE TO MONITOR.
--- NOTE | 2019-07-06 17:20 | NUR ---
SHIFT SUMMARY- PT IS ALERT, PLESANT AND COOPERATIVE. HE IS EATING AND DRINKING WELL. PT IS IMPULSIVE AND FREQUENTLY GETS OUT OF BED OR OUT OF HIS CHAIR. HE IS INTERMITNETLY UNSTEADY ON HIS FEET. HIS CARE PROVIDER WAS IN THIS MORNING AND ASSISTED WITH BREAKFAST. HE HAD A SHOWER THIS AFTERNOON.
--- NOTE | 2019-07-07 04:33 | NUR ---
RESEARCH CONSULTANT SUMMARY NO ACUTE CHANGES. PT HAS REMAINED CALM AND EASILY REDIRECTABLE TONIGHT. UP AND DOWN FROM BED TO CHAIR NUMEROUS TIMES AT START OF SHIFT BUT PT ABLE TO SLEEP FOR SEVERAL HOURS AT A TIME AFTER RECIEVING SCHEDULED BEDTIME MEDS. BED ALARM ON FOR SAFETY. VSS, WILL CONTINUE TO MONITOR.
--- NOTE | 2019-07-07 18:27 | NUR ---
SHIFT SUMMARY- PT IS ALERT, PLESANT AND COOPERATIVE. HE IS IMPULSIVE AND HAS BEEN GETTING OUT OF BED FREQENTLY THIS SHIFT. HE BECAME RESTLESS THIS AFTERNOON. HE IS EATING AND DRINKING WELL. HOME CARE PROVIDER CALLED FOR AN UPDATE.
--- NOTE | 2019-07-08 04:27 | NUR ---
SHIFT SUMMARY PT ANXIOUS AT BEGINNING OF SHIFT. OFTEN GETTING UP FROM HIS CHAIR TO GO BACK TO HIS BED, BACK AND FORTH. COOPERATIVE AND REDIRECTABLE. TOOK EVENING MEDICATIONS WITHOUGHT COMPLAINT AND THEN AFTER APPROX 2 HOURS SLOWELY SETTLED DOWN TO BED. NO ACUTE EVENTS NOTED THUS FAR THIS NIGHT. PT IS PRESENTLY SLEEPING. APPEARS IN NO ACUTE DISTRES. WILL CONTINUE TO MONITOR.
--- NOTE | 2019-07-08 17:46 | NUR ---
SHIFT SUMMARY PT SLEPT MOST THE MORNING. THIS AFTERNOON & EVENING, PT AMBULATED BACK & FORTH FROM CHAIR IN HALLWAY TO BED THROUGHOUT SHIFT. PT AMBULATED IN THE HALLWAYS WITH AIDE THIS SHIFT. PT SHOWERED TODAY. NO PRN MEDICATIONS NEEDED THIS SHIFT. PT IN PLEASANT & COOPERATIVE MOOD THROUGHOUT SHIFT. NO OTHER CHANGES IN ASSESSMENT AT THIS TIME.
--- NOTE | 2019-07-09 04:15 | NUR ---
SHIFT SUMMARY PT WAS REPEATEDLY SWITCHING BACK AND FORTH FROM CHAIR IN HALLWAY TO SITTING ON BED AT BEGINING OF SHIFT. AFTER EVENING MEDS SLOWELY OVER THE COARSE OF AN HOUR OR TWO BECAME MORE TIRED AND WENT TO SLEEP. HE HAS AWOKEN SEVERAL TIMES THIS NIGHT AND COME OUT INTO THE HALLWAY. EASILY REDIRECTABLE, AND READILY CLIMBS BACK INTO BED WHEN EXPLAINED TO HIM THAT IT IS THE MIDDLE OF THE NIGHT. NO ACUTE CHANGES NOTED THUS FAR THIS SHIFT. WILL CONTINUE TO MONITOR.
--- NOTE | 2019-07-09 17:23 | NUR ---
SHIFT SUMMARY PT HAS HAD A GOOD DAY. AMBULATED HALLWAY WITH AIDE 2 TIMES. REORIENTED WELL WITH FOOD AND REDIRECTION. PT SHOWERED THIS SHIFT. NO OTHER CHANGES IN ASSESSMENT AT THIS TIME. NO PRN MEDS REQUIRED THIS SHIFT SO FAR. PLACEMENT PENDING PER DC PLANNING. VSS.
--- NOTE | 2019-07-10 05:52 | NUR ---
SHIFT SUMMARY PT IS COOPERATIVE WITH CARE. BECOMES ANXIOUS WITH LOUD NOISES AND OTHER PATIENTS YELLING. WAS ANXIOUS EARLY THIS SHIFT BUT CALMED THE EVENING PROGRESSED. WENT TO BED AROUND 2300 AND HAS SLEPT OFF AND ON THROUGH THE NIGHT. AWAKENS OFTEN AND WALKS OUT INTO HALLWAY. EASILY REDIRECTABLE BACK TO BED. PRESENLTY APPEARS TO BE SLEEPING AND IN NO DISTRESS. WILL CONTINUE TO MONITOR.
--- NOTE | 2019-07-10 18:13 | NUR ---
SHIFT SUMMARY PT AMBULATED HALLWAY AND CHANGED FROM BED TO CHAIR IN HALLWAY THROUGHOUT SHIFT. NO EXCESSIVE AGITATION. PT REDIRECTED EASILY. PT SHOWERED TODAY. CONTINUED TO BE REMINDED TO EAT SLOWER. NO OTHER CHANGES IN ASSESSMENT AT THIS TIME. VSS. WILL CONTINUE TO MONITOR UNTIL TURNOVER IS COMPLETE.
--- NOTE | 2019-07-11 04:27 | NUR ---
SHIFT SUMMARY PT VERY BUSY ALL THE TIME. ALWAYS MOVING. WANDERED IN ROOM AND OUT IN SABA. COLORING SUPPLIES PROVIDED WHICH PT SPENT SOME TIME WORKING ON. PT INCONTINENT AT TIMES. NEEDS ASSISTANCE WITH CLEANING AFTER USING THE RESTROOM. PT FELL ASLEEP AT APPROX 0100 AND HAS SPLEPT WELL SINCE. WHITE NOISE MACHINE ON AT BEDSIDE. PT MOSTLY NONVERBAL. WILL ANSWER SOME SIMPLE QUESTIONS BUT USUALLY WILL NOT. VITAL SIGNS STABLE. PT AWAITING PLACEMENT. WILL CONTINUE TO MONITOR.
--- NOTE | 2019-07-11 18:40 | NUR ---
SHIFT SUMMARY PT INDEPENDENT IN ROOM AND IN HALLWAY. NO ATTEMPTS TO PUSH DOORS OPEN OR SHEYLA HIMSELF AGAINST COONEY OR DOORS. DID GET CAUGHT REMOVING FOOD FROM MEAL CART THAT HAD BEEN IN PT ROOMS. MOVED CART TO CLOSER OBSERVATION AND THEN EXPLAINED TO PT NOT TO REMOVED FOOD FROM CART WELL EXTRA FOOD ORDERED FOR HIM. SHAVED THIS AFTERNOON WITH PT APPEARING INCREASED IN AXIETY WITH THE NOISE OF SHAVER AND THEN REPORTED FEELING SCARED FOR APPROX 1/2 HOUR AFTERWARD. PROVIDED CALMING WORDS AND REMINDED HIM HE IS IN A SAFE PLACE.
--- NOTE | 2019-07-12 05:16 | NUR ---
SHIFT SUMMARY: PATIENT IS ALERT AND ORIENTED TO SELF, FIRST NAME ONLY. MOST WORDS INSURANCE COMMISSIONER CAN NOT UNDERSTAND. VS ARE STABLE, APPETITE IS GOOD. PATIENT GOES BACK AND FORTH FROM CHAIR IN ROOM TO CHAIR IN THE SABA WITH A STEADY GAIT. NO S/S OR COMPLIANTS OF PAIN. HS ATIVAN AND THORAZINE WERE GIVEN PER JUN WITH GOOD EFFECT, PATIENT HAS SLEPT WELL THIS SHIFT.
--- NOTE | 2019-07-12 13:30 | NUR ---
07-11-19 FOOD REQUEST X3 WAS ENTERED WITH THE WRONG PROVIDER. THE CORRECT PROVIDER IS MILIND MEDELLIN MD ER.
--- NOTE | 2019-07-12 17:28 | NUR ---
PATIENT IS ALERT AND ORIENTED TO HIMSELF AND FOLLOWING DIRECTIONS. HE HAS NO AGRESSIVE BEHAVIOR TODAY. HE AMBULATES INDEPENDENTLY. HE DOES NEED HELP CHAMGING ATTENDS. SUPERVISED MEALS. NO NEW COMPLAINTS. WILL CONTINUE TO MONITOR
--- NOTE | 2019-07-12 21:53 | NUR ---
PATIENT ALERT TO SELF AND FOLLOWING DIRECTIONS. GOING BACK AND FORTH INDEPENDENTLY FROM BED TO CHAIR AND IN HALLWAY. REPORTING HE WANTS TO GO TO BED AFTER MEDICATION. GARBLED SPEECH. PATIENT IN BED AT THIS TIME.
--- NOTE | 2019-07-13 03:37 | NUR ---
SHIFT SUMMARY PATIENT HAD NO ACUTE CHANGES OBSERVED. AXO TO SELF AND FOLLOWS DIRECTION. HX OF AUTISM/BIPOLAR. GARBLED SPEECH. INDEPENDENT IN ROOM AND HALLWAY. NO IV ACCESS. NO AGRESSIVE BEHAVIOR NOTED. VSS/AFEBRILE. NO S/SX OF PAIN, SOB, AND N/V. TAKES MEDICATION WHOLE WITH WATER. SAT IN SABA CHAIR OR BACK INTO BED REPEATING ACTION FIRST PART OF SHIFT. ABLE TO SLEEP MOST OF THE NIGHT. CALL LIGHT IN REACH. BED IN LOWEST POSITION. WILL CONTINUE TO MONITOR UNTIL DAY SHIFT NURSE ASSUMES CARE.
--- NOTE | 2019-07-13 18:35 | NUR ---
PATIENT IS ALERT. ORIENTED TO SELF AND FOLLOWING DIRECTIONS. HE IS COOPERATIVE. HE GOT A SHOWER TODAY. HE HAS A GOOD APPETITE. NO COMPLAINTS. WILL CONTINUE TO MONITOR
--- NOTE | 2019-07-13 22:59 | NUR ---
PATIENT SLEEPING AFTER MEDICATION ADMINISTRATION. CALL LIGHT IN REACH.
--- NOTE | 2019-07-14 03:24 | NUR ---
SHIFT SUMMARY PATIENT HAD NO ACUTE CHANGES OBSERVED. AXO TO SELF WITH HX OF AUTISM. GARBLED SPEECH. PATIENT INDEPENDENT IN ROOM AND OUT IN HALLWAY. NO AGRESSIVE BEHAVIOR OBSERVED. NO IV ACCESS. VSS/AFEBRILE. NO S/SX OF PAIN, SOB, AND N/V. TAKES MEDICATION WHOLE WITH WATER. UP TO CHAIR AND BACK TO BED REPEATING FIRST PART OF SHIFT. PATIENT GOES TO BED AFTER MEDICATION ADMINISTRATION. CALL LIGHT IN REACH. BED IN LOWEST POSITION. WILL CONTINUE TO MONITOR UNTIL DAY SHIFT NURSE ASSUMES CARE.
--- NOTE | 2019-07-14 17:13 | NUR ---
PATIENT IS ALERT AND ORIENTED TO SELF AND FOLLOWING DIRECTIONS. HE HAS BEE COOPERATIVE AND EASILY REDIRECTABLE ALL DAY. HE IS INDEPENDENT TO THE BATHROOM BUT NEEDS ASSISTANCE WITH CHANGING SOILED ATTENDS. NO COMPLAINTS OF PAIN. HE HAS SLEPT MOST OF THE DAY BETWEEN MEALS. WILL CONTINUE TO MONITOR.
--- NOTE | 2019-07-15 05:31 | NUR ---
SHIFT SUMMARY PT IS A 44 Y/O MALE, FROM [facility], AND ADMITTED FOR A PSYCHIATRIC OBSERVATION HOLD AFTER DISPLAYING INCREASED AGGRESSION AT [facility]. PT IS DEVELOPMENTALLY DELAYED, BUT CURRENTLY COOPERATIVE WITH CARE AND EASILY REDIRECTABLE. NO COMPLAINTS OF PAIN, NAUSEA OR SOB. PT SLEPT WELL THROUGH THE NIGHT. VITAL SIGNS STABLE. PT WANDERS INDEPENDENT BETWEEN HALLWAY AND ROOM. NO OTHER ACUTE CHANGES IN PT CONDITION NOTED. WILL CONTINUE TO MONITOR AND TREAT PER EMAR UNTIL HAND OFF TO DAY SHIFT RN.
--- NOTE | 2019-07-15 15:54 | NUR ---
SHIFT SUMMARY PT IS FATIGUED TODAY BUT AWAKES TO HIS NAME. HE HAS BEEN UP TO THE BATHROOM AND TO EAT BUT THEN ASKS TO GO BACK TO BED. HE DID C/O A HEADACHE AND TYLENOL WAS GIVEN ORDERED. PT ALSO REPORTS "NOT FEELING WELL" AND HIS BP IS ON THE LOW SIDE. IS AWARE. PT IS ABLE TO MAKE HIS NEEDS KNOWN WHEN ASKED. HE IS RESTING IN BED AND COMES OUT TO THE SABA IF HE NEEDS ANYTHING. HE IS VISIBLE ON CAMERA PER REMOTE MONITORING.
--- NOTE | 2019-07-16 06:09 | NUR ---
SHIFT SUMMARY PT IS A 44 Y/O MALE, ADMITTED FOR INCREASED AGRESSION WITH A HX OF DEVELOPMENTAL DELAY. HE IS A&O X SELF AND STAFF, COOPERATIVE WITH CARE. PT REPORTED A HEADACHE, AND WAS MEDICATED WITH PRN TYLENOL. NO COMPLAINTS OF NAUSEA OR SOB. PT IS INDEPENDENT AND WANDERS BETWEEN HIS ROOM AND THE HALLWAY. VITAL SIGNS STABLE. NO OTHER ACUTE CHANGES IN PT CONDITION NOTED. WILL CONTINUE TO MONITOR AND TREAT PER EMAR UNTIL HAND OFF TO DAY SHIFT RN.
--- NOTE | 2019-07-16 15:55 | NUR ---
SHIFT SUMMARY PT IS A/O X2 WITH NO C/O PAIN. HE HAS BEEN UP FOR MEALS AND THEN BACK TO BED. HE DID GET UP AND WITH X 1 ASSIST TOOK A SHOWER AND WE CHANGED HIS LINENS. PT CONTINUES TO HAVE A GOOD APPETITE AND DRINKS FLUIDS EASILY WHEN OFFERED. BP HAS BEEN ON THE LOW SIDE AGAIN TODAY AND THE DR IS AWARE. FLUIDS HAVE BEEN ENCOURAGED THROUGHOUT THE DAY. PT HAS DIFFICULTY WITH COMMUNICATION AND NEEDS FREQUENT NURSE ROUNDING. HE REMAINS VISIBLE ON CAMERA FOR SAFETY PER REMOTE INSULATION BOARD CALENDER OPERATOR. HE IS RESTING NOW IN BED.
--- NOTE | 2019-07-17 05:08 | NUR ---
SHIFT SUMMARY PT IS A 44 Y/O MALE, ADMITTED FOR PSYCH OBSERVATION HOLD AFTER SHOWING INCREASED AGGRESSION WITH STAFF AND OTHER PATIENTS. PT IS FROM [facility], HX OF DEVELOPMENTAL DELAY. HE WANDERS INDEPENDENTLY BETWEEN HIS ROOM AND THE HALLWAY. NO COMPLAINTS OF PAIN, NAUSEA OR SOB. VITAL SIGNS STABLE. NO ACUTE CHANGES IN PT CONDITION NOTED. WILL CONTINUE TO MONITOR AND TREAT PER EMAR UNTIL HAND OFF TO DAY SHIFT RN.
--- NOTE | 2019-07-17 17:38 | NUR ---
SHIFT SUMMARY PT IS A/O X 1 WITH NO C/O PAIN OR DISCOMFORT. HE NAPS THROUGHOUT THE DAY AND GETS UP TO EAT AND USE THE TOILET. HE WAS ASSISTED TO TAKE A SHOWER. PT CONTINUES TO EAT AND DRINK VERY WELL AND OFTEN. PT IS UP IND IN HIS ROOM AND IN THE SABA. HE FOLLOWS DIRECTIONS AND IS COOPERATIVE WITH HIS CARE. HE CAN MAKE HE NEEDS KNOWN AT TIMES IF ASKED. HE COMES OUT IN THE SABA IF HE NEEDS SOMETHING.
--- NOTE | 2019-07-18 04:40 | NUR ---
SHIFT SUMMARY NO ACUTE CHANGES THIS SHIFT. AOXSELF, UNABLE TO ASSESS FULL ORIENTATION DUE TO GARBLED/MUMMBLING SPEECH. DOES HAVE 1-2 CLEAR WORDS & THEN GOES BACK TO GARBLED SPEECH. DOES FOLLOW SIMPLE DIRECTIONS & IS REDIRECTABLE. PT HAS ONLY SLEPT 1-2 HRS TONIGHT & COMES OUT OF ROOM TO NOTIFY STAFF OF HIS NEEDS FREQUENTLY. NO S/S OF PAIN, NAUSEA OR DYSPNEA. VSS. CALL LIGHT IN REACH. WCTM.
--- NOTE | 2019-07-18 16:48 | NUR ---
NO ACUTE CHANGES TO PATIENT. WALKED AROUND SABA, ATE SNACKS, SLEPT.
--- NOTE | 2019-07-19 04:17 | NUR ---
SHIFT SUMMARY NO ACUTE CHANGES THIS SHIFT. PT ACTUALLY SLEPT WELL TONIGHT, MORE THEN PREVIOUS NIGHT. HE DID GET UP A FEW TIMES & ASKED FOR SNACKS BUT WAS EASILY REDIRECTABLE TO RETURN BACK TO BED WHEN THROUGH. PLEASENT & COOPERATIVE W/CARE. VSS. NO S/S OF PAIN, NAUSEA OR DYSPNEA. CALL LIGHT IN REACH. WCTM.
--- NOTE | 2019-07-19 17:41 | NUR ---
NO ACUTE CHANGES THIS SHIFT. PATIENT AWAITING PLACEMENT.
--- NOTE | 2019-07-20 04:27 | NUR ---
SHIFT SUMMARY NO ACUTE CHANGES THIS SHIFT. PT AWAKE FOR MUCH OF THE NIGHT TONIGHT. WANDERS HALLS. CONSTANTLY BUSY. GOING FROM HIS ROOM TO A CHAIR OUT IN THE SABA. PT ALERT TO SELF ONLY. NONVERBAL AT TIMES. WILL ANSWER SIMPLE QUESTIONS AND MAKE SIMPLE REQUESTS. DRINKS QUICKLY WHEN PROVIDED W/ DRINKS. ASKS FOR DRINKS FREQUENTLY. AGITATED AT TIMES BUT NO AGGRESSIVE BEHAVIOR. DID NOT REQUIRE ANY PRN MEDICATION. VITAL SIGNS STABLE. PT HAD UNEVENTFUL NIGHT. WILL CONTINUE TO MONITOR.
--- NOTE | 2019-07-20 16:50 | NUR ---
PATIENT SLEPT MOST OF THIS SHIFT. APPARENTLY DID NOT SLEP ON NOC SHIFT LAST NIGHT. THORAZINE INCREASED TO HELP WITH SLEEP AT NIGHT. PATIENT WAS CALM AND COOPERATIVE WITH CARE. CONTINENT OF URINE AND STOOL. ABLE TO FEED SELF. AWAITING PLACEMENT.
--- NOTE | 2019-07-21 04:28 | NUR ---
SHIFT SUMMARY PT SLEPT BETTER THIS EVENING. WAKING AND COMING OUT IN SABA AT TIMES BUT EASILY REDIRECTED BACK TO BED AND WOULD FALL BACK ASLEEP. PT AMBULATES IN THE SABA AND ROOM INDEPENDENTLY. FREQUENTLY BUSY. COLORS WITH CRAYON AND PAPER OCCASSIONALLY. HAD A LARGE BM THIS EVENING. NO OUTBURSTS. PT COOPERATIVE WITH CARE. NO PRN MEDICATIONS NEEDED. PT HAD UNEVENTFUL NIGHT. AWAITING PLACEMENT. NO ACUTE CHANGES.
--- NOTE | 2019-07-21 17:00 | NUR ---
PATIENT HAD AN UNEVENTFUL SHIFT. SLEPT THE MAJORITY OF THE SHIFT, WAKING TO EAT SNACKS. VITALS STABLE. NO ACUTE CHANGES NOTED OR REPORTED DURING THIS SHIFT. WILL CONTINUE TO MONITOR AND PROVIDE CARE NEEDED.
--- NOTE | 2019-07-22 07:04 | NUR ---
SHIFT SUMMARY PATIENT ALERT AND ORIENTED X 2. PATIENT WAS ABLE TO SLEEP MOST OF THE NIGHT. NO IV PRESENT. BED IN LOWEST POSITION WITH WHEELS LOCKED. CALL LIGHT WITHIN REACH. REPORT GIVEN TO ONCOMING RN.
--- NOTE | 2019-07-22 17:50 | NUR ---
THERE HAVE BEEN NO ACUTE CHANGES TO REPORT ON THIS SHIFT. WILL CONTINUE TO MONITOR AND PROVIDE CARE NEEDED.
--- NOTE | 2019-07-23 06:37 | NUR ---
SHIFT SUMMARY PATIENT ALERT, ORIENTED TO SELF. WAS ABLE TO SLEEP MOST OF THE NIGHT. BED IN LOWEST POSITION WITH WHEELS LOCKED. CALL LIGHT WITHIN REACH. REPORT GIVEN TO ONCOMING RN.
--- NOTE | 2019-07-23 18:33 | NUR ---
END OF SHIFT SUMMARY: PATIENT ALTERNATED BETWEEN BED AND CHAIR IN HALLWAY. PATIENT TOOK MULTIPLE NAPS. PATIENT APPEARED COMFORTABLE WITH THE EXCEPTION OF REPORTING SOME ANAL PAIN AFTER LARGE BOWEL MOVEMENT THIS EVENING. ENSURED THAT AREA WAS THOROUGHLY CLEANED. NO ABNORMALITIES NOTED. PATIENT CALM AND COOPERATIVE THROUGHOUT SHIFT. PATIENT REDIRECTABLE WHEN TRIED TO GO INTO ANOTHER PATIENT'S ROOM.
--- NOTE | 2019-07-24 05:51 | NUR ---
SHIFT SUMMARY PATIENT ALERT AND ORIENTED TO SELF. EASILY REDIRECTABLE TO DO DESIRED TASKS. HE WAS ABLE TO SLEEP MOST OF THE NIGHT BUT GOT UP SEVERAL TIMES TO USE THE BATHROOM AND ASK FOR SNACKS. BED IN LOWEST POSITION WITH WHEELS LOCKED. CALL LIGHT WITHIN REACH. REPORT GIVEN TO MARY WARD.
--- NOTE | 2019-07-24 06:43 | NUR ---
PATIENT HAD A GROUND LEVEL FALL WHEN HE WAS ATTEMPTING TO SIT ON ONE OF THE ROLLING CHAIRS WITH HIS BLANKET AND TIPPED HIMSELF AND THE CHAIR ONTO THE FLOOR. PATIENT CLAIMED THAT HE HIT HIS HEAD AND THAT HE HAD A HEADACHE. THIS NURSE DID NOT FIND ANY OBVIOUS INJURIES ON THE PATIENT AND HIS PUPILS WERE EQUALLY REACTIVE TO LIGHT. GEOPHYSICS PROFESSOR TOOK VITALS. PATIENT MEDICATED WITH TYLENOL FOR PAIN AND ATIVAN FOR AGGITATION PER EMAR. CHARGE NURSE, MALI VAZ, AND EXTERMINATION INSPECTOR PHYSICIAN, DR SHAVER, NOTIFIED.
--- NOTE | 2019-07-24 17:29 | NUR ---
PT IS ALERT, HAS SEVERE AUTISM, THE PT WAS UP FREQAUNTLY TO THE CHAIR OUT INTO THE SABA, PT HAS A LARGE APPETITE, PT APPEARS TO BE BREATHING EASILY ON RA AT THIS TIME, THE PT APPEARS TO HAVE NO PAIN AT THIS TIME, WILL CONTINUE TO MONITOR AND ASSESS FOR CHANGES
--- NOTE | 2019-07-24 21:40 | NUR ---
PT has been alert cooperative with meds whole and has been eating and drinking feeding self. Up in secure unit ambulates with fairly steady gait. Caregiver contact Mila Gonzalez updated via phone. Medicated with tylenol 650 mg po at HS for co headache with helpful effect.
--- NOTE | 2019-07-25 07:09 | NUR ---
PT continued cooperative and nonagressive. Wanders in secure environment occasionally into another PT's room. He redirects easily with cues. Poor safety awareness, needs secure environment due to cognitive deficits and behaviors. Needs cued to pull PJ pants up. no prn behavioral prn needed this shift. Continent of bowel & bladder. Stood at door to secure unit redirects easily. Friendly with another PT on unit. Speech difficult to understand but can communicate.
--- NOTE | 2019-07-25 17:53 | NUR ---
SUMMARY PT RESTING QUIETLY IN BED, HAS BEEN UP AND DOWN IN THE HALLS T/O THE DAY, RESTLESS, BUT FOLLOWS COMMANDS AND PROMPTS, SPEECH IS SOMETIMES DIFFICULT TO UNDERSTAND, PT HAS BEEN COOPERATIVE WITH CARE, VSS, NO ACUTE CHANGES, WILL CONT TO MONITOR
--- NOTE | 2019-07-26 04:38 | NUR ---
PT much more talkative tonight cooperative with meds whole & no agressive or intrusive behaviors. Occasionally has scrub bottoms down low in public but does pull them up with cues to do so. Wanders on secure unit with steady gait. has poor sleep pattern up multiple times in this night to ask for food and drink. Chews food when cued to take small bites, takes fluid well. offered healthy fluids versus soda. Drinks v8, ensure, milk, snacks, feeding self fruit cocktail, applesauce, yogurt or pudding, crackers cheese sticks. continent of bowel & bladder toilets independently. encouraged clear vocalization. Cheerful mood.
[2019-07-26 09:49] LABS: BASOPHILS ABSOLUTE AUTO 0.02 K/mm3 (0.00-0.23); BASOPHILS PERCENT AUTO 0 % (0-2); EOSINOPHILS ABSOLUTE AUTO 0.39 K/mm3 (0.00-0.68); EOSINOPHILS PERCENT AUTO 8 % (0-6); Hemoglobin 13.3 g/dL (13.5-17.5); IMMATURE GRAN ABSOLUTE AUTO 0.03 K/mm3 (0.00-0.10); IMMATURE GRAN PERCENT AUTO 1 % (0-1); LYMPHOCYTES ABSOLUTE AUTO 1.44 K/mm3 (0.84-5.20); LYMPHOCYTES PERCENT AUTO 30 % (21-46); MONOCYTES ABSOLUTE AUTO 0.56 K/mm3 (0.16-1.47); MONOCYTES PERCENT AUTO 12 % (4-13); Mean Corpuscular HGB Conc 32.4 g/dL (31.5-36.5); Mean Corpuscular Volume 93 fL (80-100); NEUTROPHILS PERCENT AUTO 49 % (41-73); Platelet Count 231 K/mm3 (150-400); RDW Coefficient Variation 12.6 % (11.7-14.2); RDW Standard Deviation 43.4 fL (35.1-46.3); Red Blood Cell Count 4.43 M/mm3 (4.30-5.90); White Blood Cell Count 4.74 K/mm3 (4.00-11.30)
[2019-07-26 10:14] LABS: Anion Gap 4 mmol/L (6-16); Blood Urea Nitrogen 25 mg/dL (8-24); CO2, Blood 29 mmol/L (21-32); Calcium, Blood 8.7 mg/dL (8.5-10.1); Chloride, Blood 109 mmol/L (98-108); Creatinine, Blood 0.96 mg/dL (0.60-1.20); Glomerular Filtration Rate >60 (60-); Glucose, Blood 80 mg/dL (70-99); Potassium, Blood 4.5 mmol/L (3.5-5.5); Sodium, Blood 142 mmol/L (136-145)
--- NOTE | 2019-07-26 17:25 | NUR ---
SUMMARY PT SITTING UP IN A RECLINER IN THE HALLWAY, PT HAS BEEN UP IN HIS ROOM AND UP IN THE HALLS OFF AND ON T/O THE DAY, COOPERATIVE WITH CARE, NO AGGRESION OR OUTBURSTS, EATS PLENTY OF SNACKS, HAD A SHOWER THIS MORNING, NO ACUTE CHANGES, WILL CONT TO MONITOR
--- NOTE | 2019-07-27 03:44 | NUR ---
NARROW GAUGE BRAKEMAN SUMMARY PT HAS BEEN WALKING BACK AND FORTH FROM ROOM TO HALLWAY FREQUENTLY THROUGHOUT THE NIGHT. PT HAS RECIEVED SOME SLEEP BUT STILL LOTS OF PERIODS WHERE HE GETS UP AND WALKS AROUND. PT LIKES SNACKS WHICH HE HAS BEEN PROVIDED PLENTY TONIGHT. PT'S SPEECH IS INCOMPREHENSIBLE. VSS. NO ACUTE CHANGES.
--- NOTE | 2019-07-27 18:02 | NUR ---
NO ACUTE CHANGES NOTED THIS SHIFT, WILL CONTINUE TO MONITOR AND REPORT TO ONCOMING RN
--- NOTE | 2019-07-28 02:27 | NUR ---
07/28/19 0220 PT SLEEPING WELL AT THIS TIME. NO DISTRESS NOTED.
--- NOTE | 2019-07-28 05:13 | NUR ---
07/28/19 0515 PT SLEPT WELL THIS SHIFT WITH OCC. TRIPS IN SABA. RE-DIRECTABLE TO THE BATHROOM TO VOID. DRINKS AND SNACKS GIVEN THROUGHTOUT NIGHT. UNEVENTFUL NIGHT.
--- NOTE | 2019-07-28 18:43 | NUR ---
SHIFT SUMMARY: NO ACUTE CHANGES TO REPORT THIS SHIFT. PT ALERT; HX AUTISM & BIPOLAR; ORIENTED TO SELF; COOPERATIVE WITH CARE; REDIRECTABLE. AWAITING PLACEMENT. WCTM.
--- NOTE | 2019-07-29 03:42 | NUR ---
TOOL ANALYST SUMMARY Patient slept about one half the shift waking about every 30-45 minutes to come out into leiva just to see what is going on. Very easily redirected, then right back to bed and to sleep. No complaints or signs of discomfort overnight.
--- NOTE | 2019-07-29 16:59 | NUR ---
SHIFT SUMMARY PATIENT HAS HAD NO BEHAVIORS. PLEASANT. EASILY REDIRECTABLE. INTERACTING WITH STAFF. CHANGED LOVENOX TO XERALTO. WILL GIVE THIS TONIGHT.
--- NOTE | 2019-07-30 04:17 | NUR ---
INDUSTRIAL ROOF PLUMBER SUMMARY Sleep much improved over last night. Patient would actually get oob, come outside room to sit in his chair, get up on his own and go back to bed. He did not request snacks as much as usual, and was amenable to just what was offered when he was up. No indications of pain or discomfort overnight. voiding in toilet independently about 50% of the time. VSS
--- NOTE | 2019-07-30 16:28 | NUR ---
SHIFT SUMMARY PATIENT DENIES PAIN, NAUSEA, AND SHORTNESS OF BREATH. PATIENT UP INDEPENT WITH SUPERVISION. PATIENT SITTING IN SABA WITH STAFF OR NAPPING IN HIS ROOM THIS SHIFT. PATIENT PLEASANT AND COOPERATIVE WITH CARE. GOOD PO INTAKE. CALL LIGHT IN REACH.
--- NOTE | 2019-07-31 04:52 | NUR ---
TRAVEL WRITER SUMMARY Patient slept almost all night without getting OOB except for 2 trips to chair in hallway. He was again easily redirected to return to bed for a good nights sleep. No visible or verbal signs of discomfort. No change in physical assessment. Woke easily in AM for staff to check pull ups and get vital signs.
--- NOTE | 2019-07-31 16:18 | NUR ---
SHIFT SUMMARY PATIENT IS CURRENTLY ASLEEP IN HIS ROOM. HE HAS HAD A GOOD DAY. CONVERSIVE WITH STAFF TO THE BEST OF HIS ABILITY. ABLE TO MAKE HIS NEEDS KNOWN.
--- NOTE | 2019-07-31 19:15 | NUR ---
ASSUMED CARE RECEIVED REPORT FROM DAY RN, ASSUMED CARE OF PT. ASLEEP AT THIS TIME, NO S/S ACUTE DISTRESS NOTED. DAY RN REPORTS PT HAD BEEN UP AND AMBULATING MOST OF THE DAY. CALL LIGHT, POSSESSIONS IN REACH, BED IN LOWEST POSITION WITH BED ALARM ON. WILL CONTINUE TO MONITOR.
--- NOTE | 2019-08-01 04:17 | NUR ---
SHIFT SUMMARY PT IN BED AT THIS TIME, SLEEPING ON AND OFF. MUMBLING TO SELF AND TALKING TO STAFF ON OCCASION. AMBULATED AROUND UNIT ON AND OFF T/O NIGHT, ATE SNACKS AND CANDY EARLY IN THE SHIFT. NO ACUTE EVENTS NOTED T/O NIGHT. MAINTAINED SAFETY WITH NON-SKID SOCKS AND STAFF SUPERVISION WHEN AMBULATING TO BATHROOM AND ON THE UNIT D/T UNSTEADY GAIT AT TIMES. ABLE TO MAKE NEEDS KNOWN NEEDED, NO BEHAVIORS NOTED, CALM AND COOPERATIVE WITH CARES. RE-DIRECTED NEEDED. CALL LIGHT AND POSSESSIONS IN REACH, BED IN LOWEST POSITION WITH ALARM ON. WILL CONTINUE TO MONITOR UNTIL DAY RN ASSUMES CARE.
--- NOTE | 2019-08-01 17:55 | NUR ---
SHIFT SUMMARY NO CHANGES IN ASSESSMENT AT THIS TIME. PT EASILY REDIRECTABLE. IND IN ROOM. NO PRN MEDS NEEDED THIS SHIFT. PT SHOWERED THIS SHIFT. PT UP ON SIDE OF BED EATING DINNER AT THIS TIME. CALL LIGHT IN REACH. WILL CONTINUE TO MONITOR UNTIL TURNOVER IS COMPLETE.
--- NOTE | 2019-08-02 05:19 | NUR ---
BAIT PAINTER SUMMARY PT SLEPT ON AND OFF THIS SHIFT AND HAS BEEN GOING BACK AND FORTH FROM ROOM TO HALLWAY. IT APPEARED IF PT MIGHT HAVE BEEN SLEEP WALKING. PT'S EYES STILL CLOSED WHEN PT WALKS TO THE HALLWAY. PT HAS BEEN RE-DIRECTED TO ROOM EACH TIME WITH COOPERATION. VSS. NO ACUTE CHANGES.
--- NOTE | 2019-08-02 17:18 | NUR ---
SHIFT SUMMARY PT RECIEVED SHOWER THIS SHIFT. PT HAD 2 INCONT VOIDS WHILE SLEEPING THIS SHIFT. THIS RN SPOKE WITH DR. JONAS AND DR. ABRAHAM ABOUT GAME AUTHOR CONCERNS ABOUT PT WOBBLY AND RECENT DROWSINESS DURING THE DAY. PM ATIVAN CHANGED PER DR. ABRAHAM. NO ACUTE CHANGES IN ASSESSMENT AT THIS TIME. VSS. WILL CONTINUE TO MONITOR UNTIL TURNOVER IS COMPLETE.
--- NOTE | 2019-08-03 04:19 | NUR ---
SHIFT SUMMARY PT HAS HAD NO ACUTE CHANGES THIS SHIFT, HAS BEEN PLEASANT & COOPERATIVE W/CARE, PT HAS AWOKE SEVERAL TIMES T/O NIGHT BUT RETURNS TO BED WHEN REDIRECTED AND RETURNS TO SLEEP. PT IS SLEEPING AT THIS TIME, CALL LIGHT IN REACH, WILL CONT TO MONITOR UNTIL REPORT GIVEN TO DAY RN.
--- NOTE | 2019-08-03 16:30 | NUR ---
Shift Summary No acute events this shift. Patient has been frequently in and out of bed, rested most of the shift in bed as usual. Appetite is great, meals with supervision. No signs of agression or agitation noted this shift, patient has been pleasant. Will continue to monitor.
--- NOTE | 2019-08-04 05:22 | NUR ---
SHIFT SUMMARY PT HAS HAD NO ACUTE CHANGES THIS SHIFT, NO C/O ANY KIND, PT HAS BEEN PLEASANT & COOPERATIVE W/CARE, PT SLEPT WELL T/O NIGHT, PT SLEEPING AT THIS TIME, WILL CONT TO MONITOR UNTIL REPORT GIVEN TO DAY RN.
--- NOTE | 2019-08-04 16:23 | NUR ---
Shift Summary Pleasant and cooperative, easily redirectable. Up and about as usual. No acute concerns or changes.
--- NOTE | 2019-08-04 21:26 | NUR ---
PATIENT UP A FEW TIMES AT SHIFT CHANGE FROM BED TO CHAIR IN HALLWAY INDEPENDENTLY. RESTING IN BED AFTER MEDICATION ADMINISTRATION. NO SIGNS OF AGRESSION, PAIN, OR SOB. WILL CONTINUE TO MONITOR.
--- NOTE | 2019-08-05 03:41 | NUR ---
SHIFT SUMMARY PATIENT HAD NO ACUTE CHANGES OBSERVED. AXO TO SELF. HX AUTISM. TAKES MEDICATION WHOLE WITH WATER. INDEPENDENT IN ROOM AND HALLWAY. NO IV ACCESS. NO SIGNS OF AGRESSION AND AGITATION. PATIENT IN AND OUT OF BED FIRST PART OF SHIFT SITTING IN CHAIR IN HALLWAY. PATIENT REDIRECTED TO BED AFTER 22:00 NIGHTLY. NO S/SX OF PAIN, SOB, AND N/V. CALL LIGHT IN REACH. BED IN LOWEST POSITION. WILL CONTINUE TO MONITOR UNTIL DAY SHIFT NURSE ASSUMES CARE.
--- NOTE | 2019-08-05 15:59 | NUR ---
SHIFT SUMMARY NO ACUTE CHANGES TO PRESENT THIS SHIFT. PT CONTINUES TO WAIT PLACEMENT. INDEPENDENT IN RM AND OUT TO SABA. TAKES LOTS OF NAPS AND WILL GET UP SPONTANEOUSLY AND COME OUT TO SABA TO SIT IN CHAIR FOR A FEW MOMENTS OR WALK UP AND DOWN SABA AND THEN GO BACK TO BED. HAS BEEN CO-OP WITH CARE AND RESPONDING TO DIRECTIONS WELL THIS SHIFT. LIKES TO EAT LOTS OF SNACKS, BETWEEN MEALS WELL EATING ALL OF HIS MEALS. DR OLGUIN HERE TO SEE PT THIS AM; NO NEW ORDERS. CALL LT IN REACH.
--- NOTE | 2019-08-06 04:15 | NUR ---
SHIFT SUMMARY PATIENT HAD NO ACUTE CHANGES OBSERVED. PATIENT INDEPENDENT IN THE ROOM AND WALKS SABA, SITTING IN CHAIR IN HALLWAY AND REPEATS THE PROCESS. PATIENT REDIRECTED TO STAY IN BED AT 22:00. REDIRECTS EASILY. NO SIGNS OF AGRESSION/AGITATION. DENIES PAIN, SOB, AND N/V. VSS/AFEBRILE. NO IV ACCESS. COOPERATIVE WITH CARE. CALL LIGHT IN REACH. BED IN LOWEST POSITION. WILL CONTINUE TO MONITOR UNTIL DAY SHIFT NURSE ASSUMES CARE.
--- NOTE | 2019-08-06 12:32 | NUR ---
NO ACUTE CHANGES TO PRESENT. PT UP WALKING HALLS AND INDEPENDENT IN RM. TAKES NAPS AFTER EACH MEAL. COMES OUT TO CHAIR IN SABA AND WAITS FOR MEALS TO SHOW UP. HAS BEEN CO-OP WITH CARE AND REDIRECTABLE. WILL REPORT OFF TO DOROTHY WARD.
--- NOTE | 2019-08-06 17:47 | NUR ---
NO ACUTE CHANGES TO PT. HE IS EASILY REDIRECTABLE , COMPLAINT WITH CARES AND REQUESTS FROM STAFF.
--- NOTE | 2019-08-07 03:52 | NUR ---
SHIFT SUMMARY PATIENT HAD NO ACUTE CHANGES OBSERVED. INDEPENDENT IN THE ROOM AND HALLWAY STOPPING TO SIT IN HALLWAY CHAIR. AXO X ONE WITH HX AUTISM/BIPOLAR. VSS/AFEBRILE. DENIES PAIN, SOB, AND N/V. NO SNACKS GIVEN AND BACK IN BED 22:00 TO MAINTAIN HIS SLEEP ROUTINE AND IS EFFECTIVE. NO SIGNS OF AGRESSION/AGITATION. CALL LIGHT IN REACH. BED IN LOWEST POSITION. WILL CONTINUE TO MONITOR UNTIL DAY SHIFT NURSE ASSUMES CARE.
--- NOTE | 2019-08-07 18:20 | NUR ---
NO ACUTE CHANGES WITH PATIENT THIS SHIFT. WOKE FOR MEALS, OTHERWIST SLEPT MOST OF THE DAY.
--- NOTE | 2019-08-08 03:46 | NUR ---
SHIFT SUMMARY ASSUMED CARE OF PT AT 1900. PT IS ALERT AND ORIENTED TO SELF AND STAFF, PT CAN ONLY SAY A FEW WORDED SENTENCES. HEART SOUNDS REGULAR, LUNG SOUNDS CLEAR. PT WAS ALSEEP UPON ARRIVAL TO UNIT, WHEN PT AWOKE AT 1999, PT CONSTANTLY ASKED FOR SNACKS AND DRINKS. PT WENT BACK TO SLEEP AROUND 2200. AROUND 2300 PT HAD SOILED THE BED AND THE FLOOR WITH URINE. AFTER BEING CLEANED UP THE PT WENT BACK TO SLEEP AND HAS BEEN SLEEPING SINCE. NO ACUTE EVENTS DURING THE NIGHT. PT SLEPT MOST OF THE NIGHT. CALL LIGHT IN REACH, BED IN LOWEST POSTION, WILL CONTINUE TO MONITOR UNTIL DAYSHIFT NURSE ARRIVES.
--- NOTE | 2019-08-08 17:11 | NUR ---
SHIFT SUMMARY- PT A/O TO SELF ONLY. PT AMBULATED OUT INTO THE HALLWAYS AT TIMES. PT DENIES ANY COMPLAINTS. LS CLEAR, ON RA. PT MUMBLES AND DIFFICULT TO UNDERSTAND. PT NEEDS FREQUENT REDIRECTION BUT IS PLEASANT AND COOPERATIVE. PT CONT TO AWAIT PLACEMENT.
--- NOTE | 2019-08-09 03:51 | NUR ---
SUMMARY: PT ORIENTED TO SELF ONLY. HE AMBULATED INTO THE SABA MULTIPLE TIMES BUT REDIRECTS EASILY AND IS PLEASANT/COOPERATIVE W/CARE. PT WAS INDEPENDENT TO TOILET AND ATTENDS CHANGED PRN. HE MUMBLES AND CAN BE DIFFICULT TO UNDERSTAND AT TIMES BUT IS ABLE TO CONVEY NEEDS. CAREGIVER FROM [facility] CALLED FOR UPDATE AND TO SAY HELLO TO HIM. NO ACUTE CHANGES, VSS/AFEBRILE. AWAITING PLACEMENT WHEN BED AVAILABLE.
--- NOTE | 2019-08-09 07:45 | NUR ---
PT. SLEEPING COVERS OVER HEAD.
--- NOTE | 2019-08-09 09:30 | NUR ---
PT. STILL SLEEPING COVERS OVER HEAD BREATHING EVEN AND DEEP.
--- NOTE | 2019-08-09 19:00 | NUR ---
NO NOTEABLE CHANGES THIS SHIFT EASILY REDIRECTED.
--- NOTE | 2019-08-10 06:27 | NUR ---
SHIFT SUMMARY PATIENT ALERT AND ORIENTED TO SELF. EASILY REDIRECTABLE. SLEPT WELL MOST OF THE NIGHT AND ONLY GOT UP A COUPLE TIMES. BED IN LOWEST POSITION WITH WHEELS LOCKED. CALL LIGHT WITHIN REACH. REPORT GIVEN TO ONCOMING RN.
--- NOTE | 2019-08-10 18:06 | NUR ---
PT. LAYING IN BED AFTER EATING DIJNNER. I CHANGED HIM TO FINGERFOODS YESTERDAY WHICH HE SEEMS TO DO BETTER WITH. PT HAS BEEN IN AND OUT OF BED TODAY AND INTO SABA. I HAVE STARTED MAKING HIM EAT AND DRINK IN HIS ROOM. PT. VERY AGREEABLE AND DOES NOT ARGUE ABOUT EATING OR DRINKING IN HIS ROOM. NO NOTEABLE CHANGES THIS SHIFT.
--- NOTE | 2019-08-11 04:48 | NUR ---
THERAPIST SPEECH SUMMARY NO ACUTE CHANGES THIS SHIFT. PT AAOX2 AND PLEASANT. INDEPENDENT IN ROOM. DENIES PAIN AND SEEMS TO BE IN NO APPARENT DISTRESS. PT HAS BEEN SLEEPING WELL SINCE GOING TO BED AT 2200. VSS, WILL CONTINUE TO MONITOR.
--- NOTE | 2019-08-11 17:24 | NUR ---
PATIENT IS ALERT AND ORIENTED TO SELF AND FOLLOWING DIRECTIONS. PATIENT HAS NOT BEEN AGITATED OR COMBATIVE TODAY. ATTENDS IN PLACE, CHANGED NEEDED. PATIENT USES THE BATHROOM INDEPENDENTLY. HE WALKED AROUND MEDICAL FLOOR WITH THE VOCATIONAL PSYCHOLOGIST TODAY. WILL CONTINUE TO MONITOR.
--- NOTE | 2019-08-12 04:32 | NUR ---
SHIFT SUMMARY PT APPEARED TO SLEEP WELL THIS EVENING. GETTING UP A COUPLE TIMES BUT EASILY REDIRECTED BACK TO BED. PT REQUESTS FREQUENT SNACKS. NEEDS TO BE MONITORED WHEN EATING. PT EATS VERY QUICKLY. WHITE NOISE MACHINE ON. VITAL SIGNS STABLE. PT CONTINUES TO AWAIT PLACEMENT.
--- NOTE | 2019-08-12 16:17 | NUR ---
WE HAVE BEEN TRYING TO KEEP HIM AWAKE TODAY. WE HAVE NOT BEEN VERY SUCCESSFUL. HE EVEN FELL ASLEEP IN THE CHAIR IN THE SABA. HE HAS EATEN LOTS OF FOOD TODAY USUAL, SNACKING BETWEEN MEALS. HE AMBULATES WELL. HE SHOWERED WITH ASSIST. HE HAS BEEN VERY PLEASANT AND COOPERATIVE.
--- NOTE | 2019-08-12 17:11 | NUR ---
HE HAS BEEN COOPERATIVE AND PLEASANT. HE HAS AMBULATED, SAT UP, AND LAYED DOWN INTERMITTENTLY T/O THE DAY. WE MONITOR HIS EATING SO THAT HE DOESN'T STUFF ALL HIS FOOD IN HIS MOUTH AT ONCE. HE HAS COLORED IN A COLORING BOOK ALSO. HE PUTS SO MUCH PRESSURE ON THE CRAYONS HE HAS BROKEN ALL OF THEM. HE DOES NOT UNDERSTAND THAT CONCEPT. HE CONTINUESTO AWAIT PLACEMENT.
--- NOTE | 2019-08-13 04:40 | NUR ---
SHIFT SUMMARY PT AWAKE MUCH OF THE NIGHT TONIGHT. SLEPT FOR SHORT BITS OF TIME OFF AND ON. REDIRECTED PT BACK TO BED THROUGHOUT THE NIGHT. PT FREQUENTLY COMING OUT INTO THE SABA. RESTLESS. EASILY REDIRECTED BACK TO BED. VITAL SIGNS STABLE. NO ACUTE CHANGES. PT AWAITING PLACEMENT. WILL CONTINUE TO MONITOR.
--- NOTE | 2019-08-13 13:21 | NUR ---
HE HAS SLEPT OFF AND ON. HE EATS 100% PLUS SNACKS. HE AMBULATES A LOT INSIDE THE SCU. THE AIRPORT MAINTENANCE CHIEF ALSO TOOK HIM FOR A WALK OUTSIDE THE SCU. HE DID WELL. VOIDING INDEPENDENTLY. ROUTINE DAILY BOWEL CARE GIVEN. HE WAS RESTLESS FIRST THING THIS MORNING AND SHOWERED BEFORE BREAKFAST. HE HAS BEEN LESS RESTLESS SINCE.
--- NOTE | 2019-08-13 16:06 | NUR ---
MARIA ANTONIA IS AWAKE IN THE CHAIR IN THE SABA AT THIS TIME BUT UNFORTUNATELY HAS SLEPT A LOT TODAY. HE HAS WALKED FREQUENTLY BUT HAS ALSO BEEN IN THE BED SLEEPING A LOT OF THE DAY. HE APPEARS COMFORTABLE AND IS EASILY DIRECTED.
--- NOTE | 2019-08-13 17:50 | NUR ---
HE IS SITTING IN THE SABA EATING DINNER. NO CHANGES. HE APPEARS COMFORTABLE.
--- NOTE | 2019-08-14 04:29 | NUR ---
SHIFT SUMMARY PT HAD UNEVENTFUL NIGHT. SLEPT MUCH BETTER THIS EVENING. ONLY WAKING A FEW TIMES AND WANDERING OUT INTO THE SABA. PT INCONTINENT/CONTINENT. ONLY ALERT TO SELF BUT FOLLOWS DIRECTIONS WELL. REQUESTS FREQUENT SNACKS. VITAL SIGNS STABLE. AWAITING PLACEMENT.
--- NOTE | 2019-08-14 16:10 | NUR ---
ALERT TO SELF. WANDERS INTO HALLWAY TO CHAIR. STEADY GAIT. GOOD APPETITE. UNLABORED RESPIRATIONS. DIFFICULT TO TELL WHAT PATIENT IS SAYING WHEN TALKING, BUT DOES ASK FOR DONUT OFTEN. AWAITING PLACEMENT. SLEEPING MOST OF SHIFT. TM
--- NOTE | 2019-08-15 07:10 | NUR ---
PT from half-way who was having agressive disruptive behaviors in outpt setting continues to need secure environment to prevent wandering provide theraputic environment. PT cooperative without any agressive ZBX. Up indep in room able to communicate. Showered with assist, wearing pullup brief. Small amt of urinary incont.. Able to feed self with setup. Needs placement with dc planning continues.
--- NOTE | 2019-08-15 19:04 | NUR ---
ALERT. COOPERATIVE. INDEPENDENT. STEADY GAIT IN HALLWAY. UNLABORED RESPIRATIONS. AWAITING PLACEMENT
--- NOTE | 2019-08-16 06:02 | NUR ---
PT who awaits placement in safe environment continues with greatly improved behaviors since edmission. no disruption noted or agression & PT has stable vitals and is cooperative with rx and cares and is independent on unit with steady gait. PT has developmental delays cognative impairment & has some difficulty with speech but is able to communicate. Enjoys suzie, redirects easity. Continent of bowel & bladder, occasionally has pullups exposed but redirects to pull up pants and redirects to his room and bathroom. Occasional clear speech.
--- NOTE | 2019-08-16 16:58 | NUR ---
PT IS A/O, PT HAS SEVERE AUTISM, THE PT APPEARS TO BE BREATHING EASLIY ON RA, THE PT IS UP IND, TODAY THE PT CAME OUT INTO THE SABA SEVERAL TIMES ASKING FOR FOOD, OTHERWISE THE PT SLEPT FOR MOST OF THE DAY, THE PT WAS CALM AND COOPERATIVE TODAY, CALL LIGHT IN REACH, WILL CONTINUE TO MONITOR AND ASSESS FOR CHANGES
--- NOTE | 2019-08-17 06:39 | NUR ---
PT calm & cooperative with no agression or outbursts.
--- NOTE | 2019-08-17 17:01 | NUR ---
PT A/O TO SELF, THE PT APPEARS TO BE BREATHING EASILY ON RA AT THIS TIME, THE PT SLEPT OFF AND ON T/O THE DAY LESS TODAY COMPARED TO YESTERDAY, THE PT AMBULATED OUT ON THE UNIT X2 TODAY, WAS CALM AND EASILY DIRECTED, THE IS STEADY ON HIS FEET, WILL CONTINUE TO MONITOR AND ASSESS FOR CHANGES
--- NOTE | 2019-08-18 04:28 | NUR ---
SHIFT SUMMARY NO ACUTE CHANGES TO REPORT THIS SHIFT, PT HAS RESTED MOST OF THE NIGHT. BACK AND FORTH IN AND OUT OF THE HALLWAY A FEW TIMES THIS SHIFT. HE HAS BEEN PLESANT AND COOPERATIVE AND EASILY REDIRECTABLE. ASSESSMENT UNCHANGED. BED IN LOWEST POSITION, CALL LIGHT WITHIN REACH. WILL CONTINUE TO MONITOR AND REPORT TO ONCOMING RN.
--- NOTE | 2019-08-18 16:38 | NUR ---
up for meals, spent the majority of shift in bed resting, snacks suppied by aid who managed his behavior very well, compulsive (ate snacks found on desk dispite being told not to, but did not fight when remaining treat was taken from him, will continue to monitor and treat until share bsr with noc nurse
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
--- NOTE | 2019-08-19 18:15 | NUR ---
pt at base line, managed well by program advisor but needs frequent redirection, would benifit from a set schedule and planned activities, toilet flushed, bsr shared with noc nurse and pt
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
--- NOTE | 2019-08-20 18:22 | NUR ---
at baseline orintation and behavior, took all mediation, still trying to reduce amount of food consumed, eats until all food is gone and if allowed will take food found on others trays or at nurse hardware installation coordinator, will continue to monitor and treat until able to share bsr with noc nurse and pt
--- NOTE | 2019-08-21 02:05 | NUR ---
PT has autism bipolar cognitive deficit with speech that is very difficult to understand. PT follows directions, is redirectable knows room , able to toilet self or ask for assist to change pullup, says I need help.
--- NOTE | 2019-08-21 06:56 | NUR ---
no acute changes continues with developmental delay & communication issues. no agressive or intrive behaviors. Redirects easily. Cooperative with meds.
--- NOTE | 2019-08-21 17:17 | NUR ---
SUMMARY PT HAS HX AUTISM & BIPOLAR D/O, HE IS CHILDLIKE, SPEECH DIFFICULT TO UNDERSTAND. HE NAPS INTERMITTANTLY T/O DAY, UP AMBULATES TO SABA & SITS IN CHAIR FOR MEALS & INTERACTION. HE HAS BEEN CALM, FOLLOWS DIRECTION T/O DAY. MACHINE GREASER TOOK HIM ON A LONG WALK IN HALLS TODAY. HE HAD SHOWER. +BM TODAY. VSS. NO MEDICAL ISSUES. WE CONTINUE TO WAIT PLACEMENT.
--- NOTE | 2019-08-22 05:40 | NUR ---
PT continues with medications active on secure unit set off door alarm x 1 .Cooperative with cares indep in toileting & has steady gait. Hungry all the time. No choking with food or fluids. Regular BMs multiple times daily. Asks for medications takes meds whole. Awaiting placement in secure environment. Intermittanly has clear well vocalized speech, often speech is garbled rapid & difficult to understand. Compliant with 2200 bedtime up multiple times to ambulate into leiva always redirects well. Knows where his room is, not intrusive or agressive.
--- NOTE | 2019-08-22 14:59 | NUR ---
summary PT AFFECT CONTINUES CALM, REDIRECTABLE. HX AUTISM, CHILDLIKE. HX BIPOLAR D/O, NO MANIC SYMPTOMS. HIS SPEECH IS DIFFICULT TO UNDERSTAND HOWEVER HE @ X'S MAKES PHRASES THAT ARE DISCERNABLE & APPROP. HE NAPS FREQUENTLY T/O DAY. NOT INTERESTED IN TV, DRAWING OR COLORING. DIFFICULT TO FIND ACTIVITIES TO OCCUPY HIS DAY. STAFF TAKES HIM ON WALKS IN HALLS. HE WILL SIT IN SABA FOR MEALS. OTHERWISE STAYS TO MIMSELF IN HIS ROOM NAPPING. VSS. MEDICALLY STABLE, SOC SERV & CARE MANAGEMENT CONTINUE TO PURSUE APPROP PLACEMENT.
--- NOTE | 2019-08-23 06:33 | NUR ---
SHIFT SUMMARY PT IS A 44 Y/O MALE, ADMITTED FOR A PSYCH HOLD AND CURRENTLY AWAITING PLACEMENT. HE IS A&O X 2, EASILY DIRECTABLE, AND COOPERATIVE WITH CARE. PT DENIED ANY COMPLAINTS OF PAIN, NAUSEA OR SOB. VITAL SIGNS STABLE. PT SLEPT WELL THROUGH THE NIGHT. NO OTHER ACUTE CHANGES IN PT CONDITION NOTED. WILL CONTINUE TO MONITOR AND TREAT PER EMAR UNTIL HAND OFF TO DAY SHIFT RN.
--- NOTE | 2019-08-23 18:39 | NUR ---
END OF SHIFT SUMMARY: PATIENT CALM AND COOPERATIVE THROUGHOUT SHIFT. PATIENT DENIED PAIN OR DISCOMFORT UNTIL LATE THIS AFTERNOON. PATIENT HAD AN EXTRA LARGE BOWEL MOVEMENT IN THE TOILET. AFTER THIS, PATIENT REPORTED AN UPSET STOMACH. PROVIDED WITH A WARM BLANKET. PATIENT HAD AN AFTERNOON SNACK WITHOUT DIFFICULTIES. BY DINNER TIME, PATIENT ATE ONLY PART OF HIS DINNER. PATIENT REQUESTED THAT WE KEEP HIS TRAY BY HIS BED FOR A WHILE. PATIENT ABLE TO TAKE EVENING MEDICATIONS WITH JUICE AND WITHOUT DIFFICULTY.
--- NOTE | 2019-08-24 05:08 | NUR ---
SHIFT SUMMARY ALERT, ABLE TO MAKE NEEDS KNOWN. COOPERATIVE WITH CARE. ANSWERS QUESTIONS APPROPRIATELY. STATED UPSET STOMACH FOR DAY SHIFT; AND CONTINUED TO STATE UPSET STOMACH FOR CHEMICAL RADIATION TECHNICIAN; MEDICATED PER EMAR. NO OTHER ACUTE CHANGES NOTED. VSS/AFEBRILE. INDEPENDENT IN HALLWAYS. FOLLOWING DIRECTIONS. BED IN LOWEST POSITION. CALL LIGHT AND BELONGINGS WITHIN REACH. WCTM. REPORT TO ONCOMING RN.
--- NOTE | 2019-08-24 10:30 | NUR ---
1030 PT HAS BEEN SLEEPING ALL MORNING. WILL ADMINISTER MEDS AND DO ASSESSMENT WHEN PT IS AWAKE.
--- NOTE | 2019-08-24 15:44 | NUR ---
PT HAS BEEN VERY DROWSY THIS SHIFT, ONLY WAKING TO EAT. HE HAS SLEPT MOST OF THE DAY WHICH IS UNLIKE HIM. NO DISTRESS NOTED OR ANY ACUTE CHANGES NOTED.
--- NOTE | 2019-08-25 05:54 | NUR ---
SHIFT SUMMAY ALERT, ABLE TO MAKE NEEDS KNOWN. COOPERATIVE WITH CARE. FOLLOWS DIRECTIONS. ANSWERS QUESTIONS TO THE BEST OF HIS ABILITY. INDEPENDENT IN HALLS AND ROOM. APPEARED TO REST OFF AND ON THIS NIGHT. C/O UPSET STOMACH AGAIN THIS SHIFT; MEDICATED PER EMAR. STATED RELIEF. VSS/AFEBRILE. NO ACUTE CHANGES OVERNIGHT. CALL LIGHT AND BELONGINGS IN REACH. BED WHEELS LOCKED FOR SAFETY. WCTM. REPORT TO ONCWIN WARD.
--- NOTE | 2019-08-25 06:40 | NUR ---
Did the round to pt at 0620 and I asked the pt to check his brief but refused, stating dry.
--- NOTE | 2019-08-25 16:36 | NUR ---
NO ACUTE CHANGES TO PT. HE HAS SLEPT MOST OF THE SHIFT, ONLY WAKING TO EAT. NO DISTURBANCES AT ALL. HAD A SHOWER .
--- NOTE | 2019-08-26 04:22 | NUR ---
SHIFT SUMMAARY PT HAS HAD NO ACUTE CHANGES THIS SHIFT, SLEPT T/O THE NIGHT WAKING A FEW TIMES TO REQUEST SNACKS, EASILY ABLE TO REDIRECT BACK TO BED, PT SLEEPING AT THIS TIME, WILL CONT TO MONITOR UNTIL REPORT GIVEN TO DAY RN.
--- NOTE | 2019-08-26 16:47 | NUR ---
Shift Summary No acute changes this shift. Daily routine seems to be the norm of sleeping, getting up to the bathroom, and hanging out with staff in the hallway asking for snacks. Denies pain. Cooperating well. No concerns.
--- NOTE | 2019-08-27 06:05 | NUR ---
SHIFT SUMMARY PT HAD NO ACUTE CHANGES THIS SHIFT, SLEPT WELL T/O THE NIGHT, SLEEPING AT THIS TIME, WILL CONT TO MONITOR UNTIL REPORT GIVEN TO DAY RN.
--- NOTE | 2019-08-27 16:13 | NUR ---
Shift Summary No changes this shift. Will continue to monitor.
--- NOTE | 2019-08-28 04:10 | NUR ---
SHIFT SUMMARY PT HAS HAD NO ACUTE CHANGES THIS SHIFT, NO C/O ANY KIND. SLEPT FROM 2200 THROUGH OUT THE NIGHT, PT SLEEPING AT THIS TIME, WILL CONT TO MONITOR UNTIL REPORT GIVEN TO DAY RN.
--- NOTE | 2019-08-28 19:32 | NUR ---
SHIFT SUMMARY: ALERT WHEN AWAKE, SLEPT MOST OF THE SHIFT. DID NOT WANT TO ENGAGE IN ACTIVITIES PROVIDED (COLORING [employer]OOKS, MUSIC). GOOD APPETITE, TAKES PILLS FINE. AMBULATING INDEPENDENTLY WITH SUPERVISION TO PREVENT ELOPEMENT. USING BR. PLAN IS PLACMENT WHEN APPROPRIATE PLACE FOUND.
--- NOTE | 2019-08-29 06:47 | NUR ---
08/29/19 0600 PT HAS BEEN SLEEPING SINCE ABOUT 2230. PT PLUGGED TOILET TWICE. FIRST WITH TOILET PAPER AND THEN WITH PAPER TOWELS. HE GOT UP RECENTLY TO WALK IN HALLS BUT STAFF RE-DIRECTED HIM TO THE ROOM. PT VERY DIRECTABLE.
--- NOTE | 2019-08-29 18:11 | NUR ---
SHIFT SUMMARY: PATIENT SLEPT MOST OF SHIFT, GOT UP FOR MEALS. HAD BM, CLOGGED TOILET AGAIN. DENIED PAIN. GOOD APPETITE AND PO INTAKE. PLAN IS FOR PLACEMENT.
--- NOTE | 2019-08-30 07:47 | NUR ---
08/30/19 0615 PT NAKED IN ROOM AND HAD REMOVED HIS SOILED CLOTHES AND THREW THEM IN TRASH BASKET. ULICES-CARE GIVEN AND NEW CLOTHES GIVEN. OTHERWISE AN UNEVENTFUL NIGHT.
--- NOTE | 2019-08-30 17:21 | NUR ---
PT IS ALERT AND ORIENTED TO SELF THIS SHIFT. PT ALTERNATES LYING IN BED AND SITTING IN CHAIR IN THE HALLWAY. PT AMBULATES INDEPENDENTLY. PT DIFFICULT TO UNDERSTAND AND COOPERATIVE WITH CARE. PT AMBULATED AROUND THE UNIT WITH FERRY BOAT CAPTAIN THIS SHIFT.
--- NOTE | 2019-08-31 04:56 | NUR ---
THERMOCOUPLE TESTER SUMMARY NO ACUTE CHANGES THIS SHIFT. PT AAOX2, FOLLOWS DIRECTION AND HAS BEEN PLEASANT. INDEPENDENT IN ROOM AND OFTEN COMES OUT INTO HALLWAY TO SIT WITH STAFF. DENIES PAIN. VSS, WILL CONTINUE TO MONITOR.
--- NOTE | 2019-08-31 16:19 | NUR ---
PT IS ALERT HAS SEVERE AUTISM, THE PT IS COOPERATIVE WITH HIS CARE THE PT IS UP IND COMES OUT IN THE SABA AND SITS PERIODICALLY, THE PT HAS A LARGE APPETITE, THE PT HAS SLEPT FOR MOST OF THE DAY WHEN NOT UP IN THE SABA, THE PT APPEARS TO BE BREATHING EASILY ON RA AT THIS TIME, CALL LIGHT AT THE BEDSIDE, HOWEVER, THE PT DOES NOT USE THAT. WILL CONTINUE TO MONITOR AND ASSESS FOR CHANGES
--- NOTE | 2019-09-01 04:38 | NUR ---
CYBER INTELLIGENCE ANALYST SUMMARY NO ACUTE CHANGES. PT INDEPENDENT IN ROOM AND HALLWAY. FOLLOWS DIRECTION AND IS EASILY REDIRECTABLE. DENIES PAIN. NO APPARENT DISTRESS NOTED. VSS, WILL CONTINUE TO MONITOR.
--- NOTE | 2019-09-01 08:24 | NUR ---
ASSUMPTION OF CARE NOTE- PATIENT IS COOPERATIVE. JSUT WOKE UP FOR BREAKFAST. ALL MEDICATIONS GIVEN THIS AM. HE IS PLEASANT, AND DENIES ANY PAIN THIS AM. ASSESSMENT DONE.
--- NOTE | 2019-09-01 14:11 | NUR ---
PATIENT REQUESTING SNACK ALL DAY. HAVE TRIED TO SPACE OUT SNACKS TO KEEP PATIENT OCCUPIED.
--- NOTE | 2019-09-01 16:59 | NUR ---
SHIFT SUMMARY PATIENT HAS BEEN PLEASANT AND COOPERATIVE BUT MILDLY TEARFUL TODAY. HE WANTS TO EACH CONSTANTLY AND I HAVE PUT HIM ON A SCHEDULE. PATIENT IS DOING WELL AND NOTING THAT HE IS BORED. WE TRIED COLORING AND IT ONLY LASTED FOR ABOUT 30 SECONDS.
--- NOTE | 2019-09-02 03:43 | NUR ---
SHIFT SUMMARY PATIENT HAD NO ACUTE CHANGES OBSERVED. AXOX 2 AND FOLLOWS DIRECTIONS. INDEPENDENT IN SABA AND ROOM. TAKES MEDICATION WHOLE WITH WATER. VSS/AFEBRILE. DENIES PAIN, SOB, AND N/V. PATIENT ON SNACK RESTRICTIONS AND SCHEDULE BEDTIME. COOPERATIVE WITH CARE. CALL LIGHT IN REACH. BED IN LOWEST POSITION. WILL CONTINUE TO MONITOR UNTIL DAY SHIFT NURSE ASSUMES CARE.
--- NOTE | 2019-09-02 16:39 | NUR ---
SHIFT SUMMARY- PT DENIES ANY COMPLAINTS T/O THE DAY. PT COOPERATIVE WITH CARE. AMBULATES INDEP. PT CONT TO AWAIT PLACEMENT. NO OTHER ACUTE CHANGES THIS SHIFT.
--- NOTE | 2019-09-03 04:25 | NUR ---
SHIFT SUMMARY PATIENT HAD NO ACUTE CHANGES OBSERVED. AXOX 2 AND INDEPENDENT IN ROOM AND HALLWAY. NO S/SX OF PAIN. SOB, AND N/V. VSS/AFEBRILE. REDIRECTABLE AND COOPERATIVE. CALL LIGHT IN REACH. BED IN LOWEST POSITION. WILL CONTINUE TO MONITOR UNTIL DAY SHIFT NURSE ASSUMES CARE.
--- NOTE | 2019-09-03 17:23 | NUR ---
SHIFT SUMMARY: NO EVENTS TODAY. ALERT TO SELF, AMBULATES AND USES BR INDEPENDENTLY. NAPPED MOST OF THE DAY, AWAKENED FOR MEALS. DENIED PAIN. PLAN IS PLACEMENT.
--- NOTE | 2019-09-04 03:37 | NUR ---
SHIFT SUMMMARY PATIENT HAD NO ACUTE CHANGES OBSERVED. AXOX 2 AND INDEPENDENT IN SABA AND ROOM. TAKES MEDICATION WHOLE WITH WATER. COOPERATIVE WITH CARE. VSS/AFEBRILE. NO S/SX OF PAIN, SOB, AND N/V. REDIRECTABLE. CALL LIGHT IN REACH. BED IN LOWEST POSITION. WILL CONTINUE TO MONITOR UNTIL DAY SHIFT NURSE ASSUMES CARE.
--- NOTE | 2019-09-04 16:20 | NUR ---
SHIFT SUMMARY PT TAKEN FOR WALK THIS SHIFT AROUND UNIT BY THIS RN. PT REDIRECTABLE THROUGHOUT SHIFT. PT AWAITING PLACEMENT. NO ACUTE CHANGES IN ASSESSMENT AT THIS TIME. VSS. WILL CONTINUE TO MONITOR UNTIL TURNOVER IS COMPLETE.
--- NOTE | 2019-09-04 18:34 | NUR ---
NAUSEA. PT STATES HIS HEADACHE IS BACK AND HE IS NAUSEOUS NOW. PT DENIES FEELING LIKE THROWING UP. PT GIVEN ZOFRAN. WASHCLOTHE ON FOREHEAD.
--- NOTE | 2019-09-05 04:10 | NUR ---
SUMMARY: PT SLEPT MAJORITY OF NIGHT EXCEPT WHEN OOB TO HALLWAY CHAIR A FEW TIMES THIS SHIFT. HE'S INDEPENDENT IN HIS ROOM AND USES TOILET BY HIMSELF. NEW PANTS WERE PROVIDED D/T BECOMING SOILED. HE DENIED ANY FURTHER TAVERAS OR NAUSEA AND EXPRESSED NO COMPLAINTS THIS SHIFT. NO ACUTE CHANGES, VSS/AFEBRILE. PT AWAITING PLACEMENT W/PROSPECTIVE D/C DATE OF 09/07/19. WCTM AND REPORT TO DAY RN.
--- NOTE | 2019-09-05 05:24 | NUR ---
TRISHA RODRIGUEZ SHOWLISBET PT AT THIS TIME W/NEW LINEN PROVIDED.
--- NOTE | 2019-09-05 17:09 | NUR ---
PT IS A/OX1, SELF, THE PT IS UP IND IN HIS ROOM AND OUT INTO THE SABA, THE PT APPEARS TO BE BREATHING EASILY ON RA, THE PT TODAY WAS GIVEN TYLEONL FOR TAVERAS, THE PT SLEPT FOR MOST OF THE DAY, UP FOR TREATS AND MEALS, THE PT AMBULATED OUT ON THE UNIT ACCOMPANIED BY THE PROPERTY DISPOSAL MANAGER, WILL CONTINUE TO MONITOR AND ASSESS FOR CHANGES
--- NOTE | 2019-09-06 05:19 | NUR ---
SUMMARY: PT A/O TO SELF ONLY, IS UP AD CHENCHO IN HIS ROOM AND HALLS AND TAKES SELF TO TOILET. HE IS CONTINENT/INCONTINENT W/ATTENDS AND LINEN CHANGED PRN. PT HAD BM THIS SHIFT. SNACKS PROVIDED PRIOR TO SCHEDULED BEDTIME THEN PT SLEPT MAJORITY OF NOCTE. HE'S DENIED PAIN, NAUSEA AND ALL COMPLAINTS THIS SHIFT BUT NASAL CONGESTION PERSISTS. NO ACUTE CHANGES, VSS/AFEBRILE. PLACEMENT PENDING W/PROSPECIVE D/C DATE OF 09/08/19 TO FACILITY IN [place]. OTIS AND REPORT TO DAY RN.
--- NOTE | 2019-09-06 16:02 | NUR ---
PT IS ALERT, PT HAS SEVERE AUTISM, THE PT IS UP IND IN HIS ROOM AND OUT INTO THE SABA, THE PT HAS BEEN MOSTLY SLEEPING T/O THE AM AND IS UP MORE THIS AFTERNOON, THE PT WAS MEDICATED FOR TAVERAS X1 SO FAR TODAY, PT WAS MEDICATED FOR NAUSEA X1 TODAY SO FAR, PT APPEARS TO BE BREATHING EASILY ON RA AT THIS TIME, PT HAS CONSTANT NASAL CONGESTION, DR. ZIMMERMAN IS AWARE AND ORDERS WERE GIVEN TODAY, PLAN FOR DC TOMMAROW, NO OTHER CHANGES NOTICED THIS SHIFT
--- NOTE | 2019-09-06 20:10 | NUR ---
1900 REPORT RECEIVED FROM SYLVIA MORALES; PT RESTING COMFORTABLY IN BED AND ABLE TO BE REDIRECTED BY NURSING STAFF.
--- NOTE | 2019-09-07 04:11 | NUR ---
SHIFT SUMMARY: 44 Y/O MALE RESTED COMFORTABLY ALL SHIFT WITH NO BEHAVIOR ISSUES NOTED; PT HAS POSSIBLE DISCHARGE TODAY TO [place]; PT DENIES PAIN OR NAUSEA; PT TOOK ALL MEDS WITHOUT ISSUES; BED LOW POSITION WITH CALL LIGHT AT SIDE.
--- NOTE | 2019-09-07 09:11 | NUR ---
0911 PT WALKED OUT WITH SECURITY PROTOCOL TO BE TRANSFERRED TO NEW FACILITY. NO IV ACCESS, MEDS SENT OVER PREVIOUSLY, NO EDUCATION NEEDED AND NO FOLLOW UP AVAILABLE. STAFF SAD TO SEE HIM GO...
[2019-09-07] MEDS ORDERED: DOXY100 PO (10:00)
[2019-09-07] MEDS ORDERED: CHLORPROMAZINE PO (10:00)
[2019-09-07] MEDS ORDERED: LORA2 PO (10:01)
[2019-09-07] MEDS ORDERED: XARELTO10 MG PO (10:02)
--- NOTE | 2019-09-07 13:15 | NUR ---
Horacio CALLED AND GAVE REPORT TO GELY . PTS MEDS WERE REFAXED TO PHARMACY UP IN THE AREA OF PTS NEW FACILITY.
== END 2019-09-07 09:10 ==
LOC: ER 12:20 → EOR 12:21 → MEDS 12:21
PROVIDERS: Internal Medicine; ADMIT Emergency Medicine
DX: F23 Brief psychotic disorder (principal); F25.0 Schizoaffective disorder, bipolar type; F84.0 Autistic disorder; L70.0 Acne vulgaris; R09.81 Nasal congestion; I95.9 Hypotension, unspecified; Z79.82 Long term (current) use of aspirin; Z88.2 Allergy status to sulfonamides; Z88.8 Allergy status to other drugs, medicaments and biological substances; Z79.899 Other long term (current) drug therapy; Z79.2 Long term (current) use of antibiotics; Z23 Encounter for immunization
CPT/HCPCS: 36415; 71045; 80048; 80053; 81001; 85025; 90686; 96372; 99285-25; A9270; G0008; G0378; J1200; J1630; J1650; J2060